=== PATIENT | female | born 1955 | race Caucasian/White ===

== ENCOUNTER 2024-02-28 15:08 | Outpatient (REF) | payer MEDICARE, SELFPAY ==
[2024-02-28 17:44] LABS: MANUAL DIFF FLAG NO
[2024-02-28 17:45] LABS: Basophils Percent Auto 0.3 % (0-2); Eosinophils Absolute Auto 0.1 X10*3/uL (0.0-0.4); Eosinophils Percent Auto 1.4 % (0-4); Hematocrit 40.3 % (37.0-47.0); Hemoglobin 13.7 g/dl (12.0-16.0); Imm Gran Abs Auto 0.03 X10*3/uL (0.00-0.03); Imm Gran Pct Auto 0.5 % (0.0-0.4); Lymphocytes Absolute Auto 1.7 X10*3/uL (1.2-4.9); Lymphocytes Percent Auto 26.5 % (20-40); Mean Corpuscular Hemoglobin 30.2 pg (27.0-33.0); Mean Corpuscular Volume 88.8 fL (80.0-98.0); Mean Platelet Volume 11.1 fL (9.4-12.3); Monocytes Absolute Auto 0.4 X10*3/uL (0.1-1.2); Monocytes Percent Auto 5.5 % (2-11); Neutrophils Absolute Auto 4.3 x10*3/uL (2.0-8.3); Neutrophils Percent Auto 65.8 % (45-73); Platelet Count 186 X10*3/uL (160-400); Red Blood Count 4.54 X10*6/uL (4.20-5.50); Red Cell Distribution Width 13.2 % (11.0-16.0); White Blood Count 6.6 X10*3/uL (4.8-10.8)
[2024-02-28 18:01] LABS: Alanine Aminotransferase 14 U/L (0-31); Albumin Level 4.4 g/dL (3.5-5.0); Alkaline Phosphatase 75 U/L (39-117); Anion Gap 16 (12-20); Aspartate Amino Transferase 17 U/L (5-31); Bilirubin Total 0.5 mg/dL (0.0-1.0); Blood Urea Nitrogen 21 mg/dL (9-16); Carbon Dioxide 28 mmol/L (22-29); Chloride 102 mmol/L (96-108); Cholesterol 196 mg/dL (<200); Estimated Glomerular Filt Rate > 60; Glucose Random 240 mg/dL (60-115); HDL Cholesterol 48 mg/dL (>40); LDL Cholesterol Calculated 125 mg/dL (<100); Sodium 141 mmol/L (135-145); Triglycerides 119 mg/dL (<150)
[2024-02-28 18:15] LABS: TSH reflex Free T4 0.36 uIU/mL (0.32-4.0)
[2024-02-28 18:31] LABS: Creatinine Urine 154.19 mg/dL; Microalbum/Creatinine Ratio Ur 134.2 ug/mg cr (<30)
== END 2024-02-28 15:09 | disposition home or self-care (01) ==
LOC: HO.CHCLDS 15:08
PROVIDERS: Visit Provider Internal Medicine
DX: E11.9 Type 2 diabetes mellitus without complications (principal); E78.00 Pure hypercholesterolemia, unspecified; I10 Essential (primary) hypertension
CPT/HCPCS: 36415; 80053; 80061; 82043; 82570; 84443; 85025

== ENCOUNTER 2024-06-02 13:18 | Outpatient (REF) | payer MEDICARE, SELFPAY ==
[2024-06-02 14:40] LABS: Alanine Aminotransferase 20 U/L (0-31); Albumin Level 4.3 g/dL (3.5-5.0); Alkaline Phosphatase 77 U/L (39-117); Anion Gap 13 (12-20); Aspartate Amino Transferase 22 U/L (5-31); Bilirubin Total 0.5 mg/dL (0.0-1.0); Blood Urea Nitrogen 22 mg/dL (9-16); Calcium 9.4 mg/dL (8.4-10.2); Carbon Dioxide 28 mmol/L (22-29); Chloride 105 mmol/L (96-108); Estimated Glomerular Filt Rate > 60; Glucose Random 197 mg/dL (60-115); Sodium 141 mmol/L (135-145); Total Protein 6.9 g/dL (6.5-8.0)
== END 2024-06-02 13:19 | disposition home or self-care (01) ==
LOC: HO.CHCLDS 13:18
PROVIDERS: Visit Provider Internal Medicine
DX: I10 Essential (primary) hypertension (principal); E78.00 Pure hypercholesterolemia, unspecified
CPT/HCPCS: 36415; 80053

== ENCOUNTER 2024-08-08 14:45 | Outpatient (REF) | payer MEDICARE, SELFPAY ==
[2024-08-08 18:10] LABS: Appearance Urine Cloudy; Color Urine Yellow; Glucose Urine UA >=1000 mg/dL (Negative); Leukocyte Esterase Urine Negative (Negative); Nitrite Urine Negative (Negative); PH 5.5 (5.0-9.0); Specific Gravity - Urine >= 1.030 (1.005-1.025); UMIC TRIGGER UACC YES; Urine Blood Negative (Negative); Urine Ketones Negative (Negative); Urine Protein 30 (1+) mg/dL (Neg-Trace)
[2024-08-08 18:13] LABS: Bacteria Urine 4+ (None Seen); Hyaline Casts Urine 0-2 /LPF (0-2); RBC Urine 0-2 /HPF (0-2); Squamous Epithelial Cell Urine >20 /HPF (0-2); UACC Culture Trigger YES
[2024-08-08 18:23] LABS: Cholesterol 234 mg/dL (<200); HDL Cholesterol 45 mg/dL (>40); LDL Cholesterol Calculated 154 mg/dL (<100); Triglycerides 178 mg/dL (<150)
--- OUTSIDE RECORDS SUMMARY | 2024-08-08 18:28 | XMS_ITS | Encounter Summary ---
Author Organization [employer] Address [address] [facility] 7 [place] [address] Care Team Providers Care Technology Administrator Name Role Phone Christina Rhodes MD Primary Care Provider [phone] Becky Acosta PharmD Unavailable Encounter Details Date Type Department Care Team (Latest Contact Info) Description 08/08/2024 Travel Social History Tobacco Use Types Packs/Day Years Used Date Smoking Tobacco: Every Day Cigarettes 1 57.2 Started: 1966 Smokeless Tobacco: Never Depression Answer Date Recorded Patient Health Questionnaire-9 Score 24 08/08/2024 Patient Health Questionnaire-9 Score 24 08/08/2024 Last PHQ-9: Questionnaire Data Not on file 0 08/08/2024 Housing Stability Answer Date Recorded What is your housing situation today? I have viktor silverio 08/08/[address] you li ve. Do you have problems with any of the following? Oven or stove not working 08/08/2024 Food Insecurity Answer Date Recorded Within the past 12 months, y ou worried that your food would run out before you got money to buy more: Sometimes True 2024 Within the past 12 months,th e food you bought just didn't last and you didn't have enough money to get more: Sometimes True 08/08/2024 Transportation Answer Date Recorded In the past 12 months, has l ack of transportation kept you from medical appts, meetings, work or from getting things needed for daily living? I am not sure 08/08/2024 Utilities Answer Date Recorded In the past 12 months, has t he electric, gas, oil or water company threatened to shut off services in your home? I am not sure 08/08/2024 Depression Answer Date Recorded Patient Health Questionnaire-2 Score 6 08/08/2024 Comments Unknown Sex and Gender Information Value Date Recorded Sex Assigned at Female 04/13/2022 10:24 AM EDT Legal Sex Female 10:24 AM EDT Gender Identity Female 04/13/2022 10:24 AM EDT Sexual Orientation Straight 04/13/2022 10 :24 AM EDT documented as of this encounter Plan of Treatment Upcoming Encounters Date Type Department Care Team (Late st Contact Info) Description 08/29/2024 3:00 PM EDT Medication Management [facility] MED & PEDS [address] [place] [address] Becky Acosta PharmD [address] [place] [address] 11/09/2024 4:00 PM EDT Office Visit [facility] MED & PEDS [address] [place] [address] Christina Rhodes MD [address] [place] [address] documented as of this encounter Visit Diagnoses Not on filedocumented in this encounter Additional Health Concerns Assessment Noted Time PHQ-9 Depression Total Score: 24 025 2:49 PM EST documented as of this encounter Care Teams Technology Administrator Relationship Specialty Start Date End Date Christina Rhodes MD [address] [place] [address] PCP - General Internal Medicine 04/10/16 Becky Acosta, PharmD [address] [place] [address] Pharmacist Internal Medicine 07/28/24 documented as of this encounter
--- OUTSIDE RECORDS SUMMARY | 2024-08-08 18:28 | XMS_ITS | Encounter Summary ---
Author Organization [employer] Address [address] [place] [address] 7 [place] [address] Care Team Providers Care Sweet Goods Machine Operator Name Role Phone Christina Rhodes MD Primary Care Provider [phone] Becky Acosta PharmD Unavailable [phone] Encounter Details Date Type Department Care Team (Latest Contact Info) Description 05/29/2024 Orders Only [facility] MED & PEDS [address] [place] [address] Christina Rhodes MD [address] [place] [address] Hypercholesterolemia (Primary Dx); Primary hypertension Social History Tobacco Use Types Packs/Day Years Used Date Smoking Tobacco: Every Day Cigarettes 1 57.2 Started: 1966 Smokeless Tobacco: Never Depression Answer Date Recorded Patient Health Questionnaire-9 Score 21 01/24/2024 Patient Health Questionnaire-9 Score 21 01/24/2024 Last PHQ-9: Questionnaire Data Not on file 0 01/24/2024 Depression Answer Date Recorded Patient Health Questionnaire-2 Score 6 01/24/2024 Comments Unknown Sex and Gender Information Value Date Recorded Sex Assigned at Female 04/13/2022 10:24 AM EDT Legal Sex Female 10:24 AM EDT Gender Identity Female 04/13/2022 10:24 AM EDT Sexual Orientation Straight 04/13/2022 10 :24 AM EDT documented as of this encounter Plan of Treatment Upcoming Encounters Date Type Department Care Team ( st Contact Info) Description 08/29/2024 3:00 PM EDT Medication Management [facility] MED & PEDS [address] [place] [address] Becky Acosta, PharmD [address] [place] [address] 11/09/2024 4:00 PM EDT Office Visit [facility] MED & PEDS [address] [place], [place] [phone] Christina Rhodes MD [address] [place], [place] [phone] documented as of this encounter Procedures Procedure Name Priority Date/Time Associated Diagnosis Comments COMPREHENSIVE METABOLIC PANEL Routine 06/02/2024 1:19 PM EST Hypercholesterolemia Primary hypertension documented in this encounter Results * (ABNORMAL) Comprehensive Metabolic Panel (06/02/2024 1:19 PM EST) Sodium 141 135 - 145 mmol/L [facility] Potassium 5.0 3.3 - 5.1 mmol/L [facility] Chloride 105 96 - 108 mmol/L [facility] Carbon Dioxide 28 22 - 29 mmol/L [facility] Anion Gap 13 12 - 20 [facility] Urea Nitrogen (BUN) 22(H) 9 - 16 mg/dL [facility] Creatinine, Serum 0.78 0.5 - 1.4 mg/dL [facility] Estimated Glomerular Filt Rate >60 [facility] Comment:Chronic Kidney Disea se: Estimated GFR < 60 mL/min/1.13u0Tkhfkt Kidney Disease: Estimated GFR < 15 mL/min/1.73m2 Glucose 197(H) 60 - 115 mg/dL [facility] Calcium 9.4 8.4 - 10.2 mg/dL [facility] Bilirubin, Total 0.5 0.0 - 1.0 mg/dL [facility] Aspartate Amino Transferase 22 5 - 31 U/L [facility] Alanine Aminotransferase 20 0 - 31 U/L [facility] Total Protein 6.9 6.5 - 8.0 g/dL [facility] Albumin Level 4.3 3.5 - 5.0 g/dL [facility] Alkaline Phosphatase 77 39 - 117 U/L [facility] Blood Venous blood specimen / Unknown 06/02/2024 1:19 PM EST 06/02/2024 2:14 PM EST Christina Rhodes MD LAB BLOOD ORDERABLES Final Result [facility] [address] [place] [address] [phone] documented in this encounter Visit Diagnoses Diagnosis Hypercholesterolemia- Primary Pure hypercholesterolemia Primary hypertension Unspecified essential hypertension documented in this encounter Additional Health Concerns Assessment Noted Time PHQ-9 Depression Total Score: 21 024 3:36 PM EDT documented as of this encounter Care Teams Sweet Goods Machine Operator Relationship Specialty Start Date End Date Christina Rhodes MD [address] [place] [address] PCP - General Internal Medicine 04/10/16 Becky Acosta PharmD [address] [place] [address] Pharmacist Internal Medicine 07/28/24 documented as of this encounter
--- OUTSIDE RECORDS SUMMARY | 2024-08-08 18:28 | XMS_ITS | Encounter Summary ---
Author Organization [employer] Address [address] [facility] 7t [place] [address] Care Team Providers Care Paper Pattern Folder Name Role Phone Christina Rhodes MD Primary Care Provider [phone] Becky Acosta PharmD Unavailable [phone] Encounter Details Date Type Department Care Team (Late st Contact Info) Description 08/08/2024 Orders Only [facility] MED & PEDS [address] [place] [address] Provider, MD [place] Social History Tobacco Use Types Packs/Day Years [...] Description 08/29/2024 3:00 PM EDT Medication Management [facility] MED & PEDS [address] [place] [address] Becky Acosta PharmD [address] [place] [address] 11/09/2024 4:00 PM EDT Office Visit [facility] MED [facility] PED[facility] [address] [place] [address] Christina Rhodes MD [address] [place] [address] documented as of this encounter Procedures Procedure Name Priority Date/Time Associated Diagnosis Comments HEMOGLOBIN A1C Routine 07/18/2024 12:09 PM EST documented in this encounter Results * Hemoglobin A1c (07/18/2024 12:09 PM EST) Blood Venous blood specimen / Unknown us Historical Provider LAB BLOOD ORDERABLES Ally l Result documented in this encounter Visit Diagnoses Not on filedocumented in this encounter Additional Health Concerns Assessment Noted Time PHQ-9 Depression Total Score: 24 025 2:49 PM EST documented as of this encounter Care Teams Paper Pattern Folder Relationship Specialty Start Date End Date Christina Rhodes MD [address] [place] [address] PCP - General Internal Medicine 04/10/16 Becky Acosta PharmD [address] [place] [address] Pharmacist Internal Medicine 07/28/24 documented as of this encounter
--- OUTSIDE RECORDS SUMMARY | 2024-08-08 18:28 | XMS_ITS | Encounter Summary ---
Author Organization [employer] Address [address] [place] [address] Care Team Providers Care Strapper Name Role Phone Christina Rhodes MD Primary Care Provider [phone] Becky Acosta PharmD Unavailable [phone] Reason for Visit * Reason Comments Med Refill Encounter Details Date Type Department Care Team (Late st Contact Info) Description 03/16/2023 Refill [facility] MED & PEDS [address] [place] [address] Christina Rhodes MD [address] [place] [address] Depressive disorder Social History Tobacco Use Types Packs/Day Years Used Date Smoking Tobacco: Never Assessed Comments Unknown Sex and Gender Information Value [...] Description 08/29/2024 3:00 PM EDT Medication Management [facility] MED & PEDS [address] [place] [address] Becky Acosta, PharmD [address] [place] [address] 11/09/2024 4:00 PM EDT Office Visit [facility] MED & PEDS [address] [place], [place] [phone] Christina Rhodes MD [address] [place] [address] documented as of this encounter Visit Diagnoses Diagnosis Depressive disorder Depressive disorder, not elsewhere classified documented in this encounter Care Teams Strapper Relationship Specialty Start Date End Date Christina Rhodes MD [address] [place] [address] PCP - General Internal Medicine 04/10/16 Becky Acosta, NikkiD [address] [place] [address] Pharmacist Internal Medicine 07/28/24 documented as of this encounter
--- OUTSIDE RECORDS SUMMARY | 2024-08-08 18:28 | XMS_ITS | Encounter Summary ---
Author Organization [employer] Address [address] [place] [address] Care Team Providers Care Ip Paralegal Name Role Phone Christina Rhodes MD Primary Care Provider [phone] Becky Acosta PharmD Unavailable [phone] Reason for Visit * Reason Comments Med Refill Encounter Details Date Type Department Care Team ([facility] Contact Info) Description 01/04/2023 Refill [facility] MED & PEDS [address] [place] [address] Christina Rhodes MD [address] [place] [address] Social History Tobacco Use Types Packs/Day Years [...] Encounters Date Type Department Care Team (Late Contact Info) Description 08/29/2024 3:00 PM EDT Medication Management [facility] MED & PEDS [address] [place], [place] [phone] Becky Acosta, PharmD [address] [place] [address] 11/09/2024 4:00 PM EDT Office Visit [facility] MED & PEDS [address] [place], [place] [phone] Christina Rhodes MD [address] [place] [address] documented as of this encounter Visit Diagnoses Not on filedocumented in this encounter Care Teams Ip Paralegal Relationship Specialty Start Date End Date Christina Rhodes MD [address] [place] [address] PCP - General Internal Medicine 04/10/16 Becky Acosta PharmD [address] [place] [address] Pharmacist Internal Medicine 07/28/24 documented as of this encounter
--- OUTSIDE RECORDS SUMMARY | 2024-08-08 18:28 | XMS_ITS | Encounter Summary ---
Author Organization [employer] Address [address] [place] [address] Care Team Providers Care Outside Medical Sales Representative Name Role Phone Christina Rhodes MD Primary Care Provider [phone] Becky Acosta PharmD Unavailable [phone] Reason for Visit * Reason Comments Med Refill Encounter Details Date Type Department Care Team ([facility] Contact Info) Description 02/11/2023 Refill [facility] MED & PEDS [address] [place] [address] Christina Rhodes MD [address] [place] [address] Diabetes mellitus without complication ([facility]) Social History Tobacco Use Types Packs/Day Years [...] Description 08/29/2024 3:00 PM EDT Medication Management [facility] CH[facility] MED & PEDS [address] [place], [place] [phone] Becky Acosta, PharmD [address] [place] [address] 11/09/2024 4:00 PM EDT Office Visit [facility] CHC MED & PEDS [address] [place], [place] [phone] Christina Rhodes MD [address] [place] [address] documented as of this encounter Visit Diagnoses Diagnosis Diabetes mellitus without complication ([facility]) Type II or unspecified type diabetes mellitus without mention of complication, not stated as uncontrolled documented in this encounter Care Teams Outside Medical Sales Representative Relationship Specialty Start Date End Date Christina Rhodes MD [address] [place] [address] PCP - General Internal Medicine 04/10/16 Becky Acosta PharmD [address] [place] [address] Pharmacist Internal Medicine 07/28/24 documented as of this encounter
--- OUTSIDE RECORDS SUMMARY | 2024-08-08 18:28 | XMS_ITS | Encounter Summary ---
Author Organization [employer] Address [address] [place] [address] Care Team Providers Care Service Center Manager Name Role Phone Christina Rhodes MD Primary Care Provider Becky Acosta PharmD Unavailable [phone] Reason for Visit * Reason Comments Med Refill Encounter Details Date Type Department Care Team ([facility] st Contact Info) Description 09/23/2023 Refill [facility] MED & PEDS [address] [place] [address] Christina Rhodes MD [address] [place] [address] Essential (primary) hypertension Social History Tobacco Use Types Packs/Day [...] Description 08/29/2024 3:00 PM EDT Medication Management [facility] CH[facility] MED & PEDS [address] [place], [place] [phone] Becky Acosta, PharmD [address] [place] [address] 11/09/2024 4:00 PM EDT Office Visit [facility] CHC MED & PEDS [address] [place] [address] Christina Rhodes MD [address] [place] [address] documented as of this encounter Visit Diagnoses Diagnosis Essential (primary) hypertension Unspecified essential hypertension documented in this encounter Care Teams Service Center Manager Relationship Specialty Start Date End Date Christina Rhodes MD [address] [place] [address] PCP - General Internal Medicine 04/10/16 Becky Acosta PharmD [address] [place] [address] Pharmacist Internal Medicine 07/28/24 documented as of this encounter
--- OUTSIDE RECORDS SUMMARY | 2024-08-08 18:28 | XMS_ITS | Encounter Summary ---
Author Organization [employer] Address [address] [place] [address] Care Team Providers Care Meat Apprentice Name Role Phone Christina Rhodes MD Primary Care Provider [phone] Becky Acosta PharmD Unavailable [phone] Reason for Visit * Reason Onset Date Comments chart prep 08/04/2024 Encounter Details Date Type Department Care Team ([facility] Contact Info) Description 08/04/2024 Telephone [facility] MED & PEDS [address] [place], [place] [phone] Christina Rhodes MD [address] [place] [address] chart prep Social History Tobacco Use Types Packs/Day Years [...] AM EDT documented as of this encounter Miscellaneous Notes * Telephone Encounter - [place] - 08/04/2024 3:51 PM EST Chart Prep Labs: done Images: done Vaccines due: yes Referrals: complete Screenings: colonoscopy [facility] Overdue care gaps: A1C, Glucose, Sbirt, SDOH, PHQ-9 documented in this encounter Plan of Treatment Upcoming Encounters Date Type Department Care Team (Late st Contact Info) Description 08/29/2024 3:00 PM EDT Medication Management [facility] MED & PEDS [address] [place] [address] Becky Acosta PharmD [address] [place] [address] 11/09/2024 4:00 PM EDT Office Visit [facility] MED & PEDS [address] [place] [address] Christina Rhodes MD [address] [place] [address] documented as of this encounter Visit Diagnoses Not on filedocumented in this encounter Additional Health Concerns Assessment Noted Time PHQ-9 Depression Total Score: 21 01/23/ 024 3:36 PM EDT documented as of this encounter Care Teams Meat Apprentice Relationship Specialty Start Date End Date Christina Rhodes MD [address] [place] [address] PCP - General Internal Medicine 04/10/16 Becky Acosta PharmD [address] [place] [address] Pharmacist Internal Medicine 07/28/24 documented as of this encounter
--- OUTSIDE RECORDS SUMMARY | 2024-08-08 18:28 | XMS_ITS | Encounter Summary ---
Author Organization [employer] Address [address] [place] [address] Care Team Providers Care Explosion Welder Name Role Phone Christina Rhodes MD Primary Care Provider [phone] Becky Acosta PharmD Unavailable [phone] Reason for Referral * Consultation (Routine) - Authorized Specialty Diagnoses / Procedures Referred By Contac t Referred To Contact Optometry Diagnoses Diabetes mellitus without complication (CMS/HCC) Christina Rhodes MD [address] [place] [address] Phone: tel: fax: [facility] OPTOMETRY [address] [place] [address] Phone: tel: fax: Referral ID Status Reason Start Date Expiration Date Visits Requested Visits Authorized [id number] Authorized Consult and Treat 08/08/2024 08/08/2025 1 1 Reason for Visit * Reason Comments Hypertension Diabetes Hyperlipidemia Encounter Details Date Type Department Care Team (Late st Contact Info) Description 08/08/2024 2:00 PM EST Office Visit [facility] CHC MED & PEDS [address], [place] [phone] Christina Rhodes MD [address] [place], [place] [phone] Diabetes mellitus without complication (CMS/HCC) (Primary Dx); Primary hypertension; Hypercholesterolemia; Smoking; Mixed stress and urge urinary incontinence; Dietary counseling; Exercise counseling; Class 2 severe obesity due to excess calories with serious comorbidity and body mass index (BMI) of 36.0 to 36.9 in adult ([facility]) Social History Tobacco Use Types Packs/Day Years [...] AM EDT documented as of this encounter Last Filed Vital Signs Vital Sign Reading Time Taken Comments Blood Pressure 135/70 08/08/2024 2:12 PM EST Pulse 84 08/08/2024 2:12 PM EST Temperature 36.5 ??C (97.7 ??F) 08/08/2024 2:12 PM ES T Respiratory Rate 19 08/08/2024 2:12 PM EST Oxygen Saturation 97% 08/08/2024 2:12 PM EST Inhaled Oxygen Concentration - - Weight 98.9 kg (218 lb) 08/08/2024 2:12 PM EST Height 165.1 cm (5' 5 ) 08/08/2024 2:12 PM EST Body Mass Index 36.28 08/08/2024 2:12 PM EST documented in this encounter Progress Notes * Christina Rhodes MD - 08/08/2024 2:00 PM EST Subjective Patient ID: Criselda Beltran is a 69 y.o. female who presents for Hypertension, Diabetes, and Hyperlipidemia. Hypertension This is a chronic problem. The current episode started more than 1 year ago. The problem is unchanged. The problem is controlled. Associated symptoms include anxiety. Pertinent negatives include no blurred vision, chest pain, headaches, malaise/fatigue, neck pain, orthopnea, palpitations, peripheral edema, PND, shortness of breath or sweats. There are no associated agents to hypertension. Diabetes Pertinent negatives for hypoglycemia include no headaches or sweats. Pertinent negatives for diabetes include no blurred vision and no chest pain. Hyperlipidemia Pertinent negatives include no chest pain or shortness of breath. Pt has not been checking her FS since her last visit Was evaluated by our clinical pharmacist. Prescribed a CGM which was not picked up yet Pt denies any symptoms of hypoglycemia. She feels overwhelmed w/ the care of her boyfriend she is living with. She states she is on a list to get her own apartment in 6 months to a year and then she will address other issues. Patient is requesting to get incontinent pads prescribed to her today. Reports history of leakage of urine exacerbated by coughing associated also with urgency for over 10 years. No reported fever orburning sensation with micturition. Patient Active Problem List Diagnosis Anxiety Depressive disorder Diabetes mellitus without complication ([facility]) Hypercholesterolemia Hypertensive disorder Vulvovaginitis No Known Allergies Current Outpatient Medications on File Prior to Visit Medication Sig Dispense Refill acetaminophen (Tylenol 8 Hour) 650 MG ER tablet Take 1 tablet by mouth in the morning and 1 tablet at noon and 1 tablet in the evening. Alcohol Swabs 70 % pads Use to test blood sugar 2 times daily 100 each 11 amLODIPine (Norvasc) 10 MG tablet Take 1 tablet (10 mg) by mouth Once per day. 30 tablet 11 atorvastatin (Lipitor) 40 MG tablet Take 1 tablet (40 mg) by mouth Once per day. TAKE ONE TABLET every night at bedtime 90 tablet 3 Blood Pressure kit Use daily busPIRone (Buspar) 5 MG tablet Take 1 tablet (5 mg) by mouth 2 times daily. 180 tablet 3 [] Continuous Glucose Division Sergeant (FreeStyle Virgie 3 [place]) device 1 each 1 (one) time for 1 dose. 1 each 0 Continuous Glucose Sensor (FreeStyle Virgie 3 Plus Sensor) misc 1 each every 15 days. 2 each 11 enalapril (Vasotec) 20 MG tablet Take 1 tablet (20 mg) by mouth 2 times daily. TAKE ONE TABLET BY MOUTH IN THE MORNING AND EVENING 180 tablet 3 FREESTYLE LITE test strip Use to test blood sugar 2 times daily 100 each 12 insulin glargine (Lantus SoloStar) 100 UNIT/ML pen Inject 50 Units under the skin at bedtime. 45 mL3 Lancets (GuestDrivenTouch Delica Plus [id number]) [facility] TEST BLOOD SUGAR TWICE DAILY 100 each 11 nicotine (Nicoderm CQ) 21 MG/24HR patch Place 1 patch on the skin 1 (one) time each day at the sametime. 30 patch 0 nicotine polacrilex (Commit) 4 MG lozenge Dissolve 1 lozenge (4 mg) in the mouth every 2 (two) hours if needed for smoking cessation. 72 lozenge 11 repaglinide (Prandin) 0.5 MG tablet Take 1 tablet (0.5 mg) by mouth before breakfast, before lunch,and before evening meal. 90 tablet 11 sertraline (Zoloft) 100 MG tablet TAKE TWO TABLETS EVERY MORNING 60 tablet 5 Tirzepatide (Mounjaro) 2.5 MG/0.5ML solution auto-injector Inject 2.5 mg under the skin 1 (one) time per week. Increase to 5mg after 4 weeks if tolerated 2 mL 0 UltiCare Short Pen Dante 31G X 8 MM mis USE ONE DAILY WITH TRESIBA 100 each 11 No current facility-administered medications on file prior to visit. Review of Systems Constitutional: Negative for appetite change, diaphoresis and malaise/fatigue. HENT: Negative for dental problem and drooling. Eyes: Negative for blurred vision, photophobia, pain and redness. Respiratory: Negative for cough, choking, chest tightness and shortness of breath. Cardiovascular: Negative for chest pain, palpitations, orthopnea and PND. Gastrointestinal: Negative for abdominal pain, anal bleeding and blood in stool. Musculoskeletal: Negative for neck pain. Neurological: Negative for headaches. Objective BP 135/70 (BP Location: Left arm, Patient Position: Sitting, BP Cuff Size: Adult long) Pulse 84 Temp 97.7 ??F (36.5 ??C) (Oral) Resp 19 Ht 5' 5 (1.651 m) Wt 218 lb (98.9 kg) SpO2 97% BMI 36.28 kg/m?? Physical Exam Constitutional: General: She is not in acute distress. Appearance: Normal appearance. She is obese. She is not ill-appearing, toxic- appearing or diaphoretic. Musculoskeletal: General: Normal range of motion. Neurological: Mental Status: She is alert. Assessment/Plan Diagnoses and all orders for this visit: Diabetes mellitus without complication ([facility]) Comments: Lantus 50 units at bedtime Advised to pickle solution maker the CGM prescribed and to get in touch w/ Becky to get educated on it's use. Orders: - POCT Glucose - Referral to [facility] Eye Care; Future Primary hypertension Comments: BP is at goal No change in management. Hypercholesterolemia Comments: Had Elevated LDL in Sept Pt needs a repeat Lipid panel to assess improvement. Orders: - POCT Glucose - Lipid Panel, Standard; Future Smoking Comments: Has not start using the nicotine patches yet Smoking cessation recommended. Mixed stress and urge urinary incontinence - Urinalysis, Complete, with Reflex to Culture; Future Dietary counseling Exercise counseling Dietary Recommendations: Fruits, vegetables, whole grains, protein foods, and fat-free or low-fat dairy products are healthychoices. Eat different types of protein foods in your diet. This can include seafood, lean meats, poultry, beans, peas, lentils, nuts, seeds, soy products, and eggs. Limit foods and beverages higher in added sugars, saturated fat, and sodium. Exercise Recommendations: At least 150 minutes of moderate-intensity physical activity per week, or an equivalent combinationof moderate- and vigorous-intensity activity Class 2 severe obesity due to excess calories with serious comorbidity and body mass index (BMI) of36.0 to 36.9 in adult ([facility]) Discussed calorie deficit, recommended reduction of 20-30% of maintenance calories; airport skilled maintenance supervisor referral offered. Recommended to decrease soda and sugary beverage consumption. Recommended at least 20 g per meal of protein to assist with satiety. Recommended at least 150 min/week of moderate intensity exercise. documented in this encounter Plan of Treatment Upcoming Encounters Date Type Department Care Team (Late st Contact Info) Description 08/29/2024 3:00 PM EDT Medication Management [facility] MED & PEDS [address], [place] [phone] Becky Acosta, PharmD [address] [place], [place] [phone] 11/09/2024 4:00 PM EDT Office Visit [facility] MED [facility] PED[facility] [address], [place] [phone] Christina Rhodes MD [address] [place] [address] Scheduled Orders Name Type Priority Associated Diagnoses Orde r Schedule Lipid Panel, Standard Lab Routine Hypercholesterolemia Expected: 08/08/2024 (Approximate), Expires: 08/08/2025 Scheduled Referrals Name Type Priority Associated Diagnoses Orde r Schedule Referral to [facility] Eye Care Outpatient Referral Routine Diabetes mellitus without complication ([facility]/H[facility]) Expected: 08/08/2024 (Approximate), Expires: 08/08/2025 documented as of this encounter Procedures Procedure Name Priority Date/Time Associated Diagnosis Comments URINALYSIS, COMPLETE, WITH REFLEX TO CULTURE Routine 08/08/2024 2:50 PM EST Mixed stress and urge urinary incontinence LIPID PANEL, STANDARD Routine 08/08/2024 2:46 PM EST Hypercholesterolemia POCT GLUCOSE Routine 08/08/2024 2:42 PM EST Diabetes mellitus without complication ([facility]/H[facility]) Hypercholesterolemia documented in this encounter Results * (ABNORMAL) Urinalysis, Complete, with Reflex to Culture (08/08/2024 2:50 PM EST) Color Urine Yellow [facility] Appearance Urine Cloudy [facility] PH 5.5 5.0 - 9.0 [facility] Glucose Urine UA >=1000(A) Negative mg/dL [facility] Urine Blood Negative Negative [facility] Specific [place] - Urine >=1.030(H) 1.005 - 1.025 [facility] Urine Protein 30 (1+)(A) Neg-Trace mg/dL [facility] Urine Ketones Negative Negative mg/dL [facility] Nitrite Urine Negative Negative [facility] Leukocyte Esterase Urine Negative Negative [facility] RBC Urine 0-2 0 - 2 /HPF [facility] Urine WBC 6-10(A) 0 - 5 /HPF [facility] Urine Squamous Epithelial Cell >20 0 - 2 /HPF [facility] Urine Bacteria 4+ None Seen [facility] Hyaline Casts, Urine 0-2 0 - 2 /LPF [facility] Urine 08/08/2024 2:50 PM EST 08/08/2024 6:03 PM EST Narrative [facility] - 08/08/2024 6:16 PM EST [id number], Clean Catch us Christina Rhodes MD LAB URINE ORDERABLES Final Result [facility] [address] [place] [phone] * (ABNORMAL) Lipid Panel, Standard (08/08/2024 2:46 PM EST) Triglycerides 178(H) <150 mg/dL [facility] Comment:Desirable Triglyceri de: less than 150 mg/dLBorderline High Triglyceride 150-199 mg/dLHigh Triglyceride: 200-499 mg/dLVery High Triglyceride: greater than or equal to 5OO mg/dL Cholesterol 234(H) <200 mg/dL [facility] Comment:Desirable Cholestero l: less than 200 mg/dLBorderline High Cholesterol: 200-239 mg/dLHigh Cholesterol: greater than 239 mg/dL LDL Cholesterol Calculated 154(H) <100 mg/dL [facility] Comment:Desirable LDL: less than 100 mg/dLNear Optimal/Above Optimal LDL: 110- 129 mg/dLBorderline High LDL: 130-159 mg/dLHigh LDL: 160-189 mg/dLVery High LDL: greater than or equal to 190 mg/dL HDL Cholesterol 45 >40 mg/dL [facility] Comment:Desirable HDL: great er than 40 mg/dL Note: This HDL assay may give artificially low results in patients with liver disease. Blood Venous blood specimen / Unknown 08/08/2024 2:46 PM EST 08/08/2024 6:02 PM EST us Christina Rhodes MD LAB BLOOD ORDERABLES Final Result [facility] [address] [place] [phone] * (ABNORMAL) POCT Glucose (08/08/2024 2:42 PM EST) Glucose Blood, POC 356(A) 60 - 200 mg/dL QC Media Lot # [id number] Lot# Expiration Date [id number] Comment:random Blood Capillary blood specimen / Unknown 08/08/2024 2:42 PM EST Christina Rhodes MD POINT OF CARE TEST ENTER/ED IT ORDERABLES Final Result documented in this encounter Visit Diagnoses Diagnosis Diabetes mellitus without complication (CMS/HCC)- Primary Type II or unspecified type diabetes mellitus without mention of complication, not stated as uncontrolled Primary hypertension Unspecified essential hypertension Hypercholesterolemia Pure hypercholesterolemia Smoking Tobacco use disorder Mixed stress and urge urinary incontinence Mixed incontinence urge and stress (male)(female) Dietary counseling Dietary surveillance and counseling Exercise counseling Class 2 severe obesity due to excess calories with serious comorbidity and body mass index (BMI) of 36.0 to 36.9 in adult (CMS/HCC) documented in this encounter Additional Health Concerns Assessment Noted Time PHQ-9 Depression Total Score: 24 025 2:49 PM EST documented as of this encounter Care Teams Explosion Welder Relationship Specialty Start Date End Date Christina Rhodes MD [address] [place] [address] PCP - General Internal Medicine 04/10/16 Becky Acosta PharmD [address] [place] [phone] Pharmacist Internal Medicine 07/28/24 documented as of this encounter
--- OUTSIDE RECORDS SUMMARY | 2024-08-08 18:28 | XMS_ITS | Encounter Summary ---
Author Organization [employer] Address [address] [place] [address] Care Team Providers Care Quality Assurance Auditor Name Role Phone Christina Rhodes MD Primary Care Provider [phone] Becky Acosta PharmD Unavailable [phone] Reason for Visit * Reason Comments Med Refill Encounter Details Date Type Department Care Team ([facility] Contact Info) Description 07/28/2022 Refill [facility] MED & PEDS [address] [place] [address] Christina Rhodes MD [address] [place] [address] Depressive disorder (Primary Dx) Social History Tobacco Use Types Packs/Day Years [...] Upcoming Encounters Date Type Department Care Team ([facility] Contact Info) Description 08/29/2024 3:00 PM EDT Medication Management [facility] CHC MED & PEDS [address] [place] [address] Becky Acosta, PharmD [address] [place] [address] 11/09/2024 4:00 PM EDT Office Visit [facility] CHC MED & PEDS [address] [place] [address] Christina Rhodes MD [address] [place] [address] documented as of this encounter Visit Diagnoses Diagnosis Depressive disorder- Primary Depressive disorder, not elsewhere classified documented in this encounter Care Teams Quality Assurance Auditor Relationship Specialty Start Date End Date Christina Rhodes MD [address] [place] [address] PCP - General Internal Medicine 04/10/16 Becky Acosta PharmD [address] [place], [place] [phone] Pharmacist Internal Medicine 07/28/24 documented as of this encounter
--- OUTSIDE RECORDS SUMMARY | 2024-08-08 18:28 | XMS_ITS | Encounter Summary ---
Author Organization [employer] Address [address] [place] [address] Care Team Providers Care Glass Cutting Machine Feeder Name Role Phone Christina Rhodes MD Primary Care Provider [phone] Becky Aocsta PharmD Unavailable [phone] Reason for Visit * Reason Onset Date Comments Med Refill 05/29/2024 Encounter Details Date Type Department Care Team (Late st Contact Info) Description 05/29/2024 Refill [facility] MEDICINE [address] [place] [address] Christina Rhodes MD [address] [place] [address] Pure hypercholesterolemia, unspecified; Diabetes mellitus without complication (CMS/HCC) Social History Tobacco Use Types Packs/Day Years [...] encounter Miscellaneous Notes * Telephone Encounter - Tianna Colon - 05/29/2024 2:14 PM EST TC from pt requesting medication refill. Medications needing refill : atorvastatin (Lipitor) 40 MG tablet repaglinide (Prandin) 0.5 MG tablet To be sent to: [facility] documented in this encounter Plan of Treatment Upcoming Encounters Date Type Department Care Team (Late st Contact Info) Description 08/29/2024 3:00 PM EDT Medication Management [facility] MED & PEDS [address] [place] [address] Becky Acosta PharmD [address] [place] [address] 11/09/2024 4:00 PM EDT Office Visit [facility] MED & PEDS [address] [place] [address] Christina Rhodes MD [address] [place] [address] documented as of this encounter Visit Diagnoses Diagnosis Pure hypercholesterolemia, unspecified Diabetes mellitus without complication (CMS/HCC) Type II or unspecified type diabetes mellitus without mention of complication, not stated as uncontrolled documented in this encounter Additional Health Concerns Assessment Noted Time PHQ-9 Depression Total Score: 21 024 3:36 PM EDT documented as of this encounter Care Teams Glass Cutting Machine Feeder Relationship Specialty Start Date End Date Christina Rhodes MD [address] [place] [address] PCP - General Internal Medicine 04/10/16 Becky Acosta, PharmD [address] [place], [place] [phone] Pharmacist Internal Medicine 07/28/24 documented as of this encounter
--- OUTSIDE RECORDS SUMMARY | 2024-08-08 18:28 | XMS_ITS | Clinical Summary ---
Author Organization [address] [facility] Address [address] [place] [address] Phone Care Team Providers Care Pbx Technician Name Role Phone Christina Rhodes MD Primary Care Provider [phone] Social History Tobacco Use Types Packs/Day Years Used Date Smoking Tobacco: Never Assessed Comments Unknown Sex and Gender Information Value Date Recorded Sex Assigned at Not on file Legal Sex Female 9:52 AM EST Gender Identity Not on file Sexual Orientation Not on file Plan of Treatment Upcoming Encounters Date Type Department Care Team ([facility] Contact Info) Description 09/20/2024 3:00 PM EDT Consult Orthopedic Surgery - [place] [address] [phone] Sean Boone, DPM [address] [address] Health Maintenance Due Date Last Done Comments Breast Cancer Screening 1955 DTaP,Tdap,and Td Vaccines (1 - Tdap) 1975 Pneumococcal Vaccine: 50+ Ye ars (1 of 1 - PCV) 2006 Zoster Vaccines (1 of 2) 2006 COVID-19 Vaccine ( - 2023-2 5 season) 2024 Influenza Vaccine (#1) 2024 Colorectal Cancer Screening: Colonoscopy 07/20/2024 Depression Screening 07/20/2024 Falls Risk Assessment 07/20/2024 Hepatitis C Screening 07/20/2024 Medicare Annual Wellness Visit 07/20/2024 Osteoporosis Screening (Bone Density Screening) 07/20/2024 Social Influencers of Health Screening 07/20/2024 RSV Immunization Patients 60 + Years Old (1 - 1-dose 75+ series) 2031 HIB Vaccines Aged Out No longer eligi ble based on patient's age to complete this topic HPV Vaccines Aged Out No longer eligi ble based on patient's age to complete this topic Hepatitis A Vaccines Aged Out No long er eligible based on patient's age to complete this topic Hepatitis B Vaccines Aged Out No long er eligible based on patient's age to complete this topic IPV Vaccines Aged Out No longer eligi ble based on patient's age to complete this topic MMR Vaccines Aged Out No longer eligi ble based on patient's age to complete this topic Meningococcal ACWY Vaccine Aged Out N o longer eligible based on patient's age to complete this topic Meningococcal B Vacine Aged Out No lo nger eligible based on patient's age to complete this topic RSV Immunization Patients Un sonia 20 months Aged Out No longer eligible b ased on patient's age to complete this topic Varicella Vaccines Aged Out No longer eligible based on patient's age to complete this topic Insurance [employer] MEDICARE ADVANTAGE Care Teams Pbx Technician Relationship Specialty Start Date End Date Christina Rhodes MD [address] [place] [address] PCP - General Internal Medicine 07/20/24
--- OUTSIDE RECORDS SUMMARY | 2024-08-08 18:28 | XMS_ITS | Encounter Summary ---
Author Organization [employer] Address [address] [place] [address] Care Team Providers Care Automobile Body Repairer Name Role Phone Christina Rhodes MD Primary Care Provider [phone] Becky Acosta PharmD Unavailable [phone] Reason for Visit * Reason Comments Med Refill Encounter Details Date Type Department Care Team (Late st Contact Info) Description 01/10/2024 Refill [facility] MED & PEDS [address] [place] [address] Christina Rhodes MD [address] [place] [address] Essential (primary) hypertension; Anxiety disorder, unspecified Social History Tobacco Use Types Packs/Day Years [...] Description 08/29/2024 3:00 PM EDT Medication Management [facility] MED & PEDS [address] [place], [place] [phone] Becky Acosta, PharmD [address] [place] [address] 11/09/2024 4:00 PM EDT Office Visit [facility] CH[facility] MED & PEDS [address] [place], [place] [phone] Christina Rhodes MD [address] [place] [address] documented as of this encounter Visit Diagnoses Diagnosis Essential (primary) hypertension Unspecified essential hypertension Anxiety disorder, unspecified documented in this encounter Care Teams Automobile Body Repairer Relationship Specialty Start Date End Date Christina Rhodes MD [address] [place] [address] PCP - General Internal Medicine 04/10/16 Becky Acosta PharmD [address] [place] [address] Pharmacist Internal Medicine 07/28/24 documented as of this encounter
--- OUTSIDE RECORDS SUMMARY | 2024-08-08 18:28 | XMS_ITS | Encounter Summary ---
Author Organization [email or web address] Address [address] [place] [address] Care Team Providers Care Engineering Consultant Name Role Phone Christina Rhodes MD Primary Care Provider [phone] Becky Acosta PharmD Unavailable [phone] Encounter Details Date Type Department Care Team (Late Contact Info) Description 05/08/2024 Orders Only [facility] MED & PEDS [address] [place] [address] Christina Rhodes MD [address] [place] [address] Social History Tobacco Use Types Packs/Day Years [...] 08/29/2024 3:00 PM EDT Medication Management [facility] MED & PEDS [address] [place] [address] Becky Acotsa, PharmD [address] [place] [address] 11/09/2024 4:00 PM EDT Office Visit [facility] CHC MED & PEDS [address] [place] [address] Christina Rhodes MD [address] [place] [address] documented as of this encounter Visit Diagnoses Not on filedocumented in this encounter Additional Health Concerns Assessment Noted Time PHQ-9 Depression Total Score: 21 024 3:36 PM EDT documented as of this encounter Care Teams Engineering Consultant Relationship Specialty Start Date End Date Christina Rhodes MD [address] [place] [address] PCP - General Internal Medicine 04/10/16 Becky Acosta PharmD [address] [place] [address] Pharmacist Internal Medicine 07/28/24 documented as of this encounter
--- OUTSIDE RECORDS SUMMARY | 2024-08-08 18:28 | XMS_ITS | Encounter Summary ---
Author Organization [employer] Address [address] [place] [address] Care Team Providers Care Paper Sorter Name Role Phone Christina Rhodes MD Primary Care Provider Becky Acosta PharmD Unavailable [phone] Encounter Details Date Type Department Care Team (Late st Contact Info) Description 09/06/2023 Orders Only [facility] CH[facility] MED & PEDS [address] [place] [address] Christina Rhodes MD [address] [place] [address] Diabetes mellitus without complication (CMS/HCC) (Primary Dx) Social History Tobacco Use Types [...] Description 08/29/2024 3:00 PM EDT Medication Management [facility] MED & PEDS [address] [place] [address] Becky Acosta, PharmD [address] [place] [address] 11/09/2024 4:00 PM EDT Office Visit [facility] MED & PEDS [address] [place] [address] Chritsina Rhodes MD [address] [place] [address] documented as of this encounter Visit Diagnoses Diagnosis Diabetes mellitus without complication (CMS/HCC)- Primary Type II or unspecified type diabetes mellitus without mention of complication, not stated as uncontrolled documented in this encounter Care Teams Paper Sorter Relationship Specialty Start Date End Date Christina Rhodes MD [address] [place] [address] PCP - General Internal Medicine 04/10/16 Becky Acosta PharmD [address] [place] [address] Pharmacist Internal Medicine 07/28/24 documented as of this encounter
--- OUTSIDE RECORDS SUMMARY | 2024-08-08 18:28 | XMS_ITS | Clinical Summary ---
Author Organization [employer] Address [address] [place] [address] 7 [place] [address] Care Team Providers Care Department Chair Name Role Phone Christina Rhodes MD Primary Care Provider [phone] Becky Acosta PharmD Unavailable [phone] Allergies No known active allergies Medications acetaminophen (Tylenol 8 Hour) 650 MG ER tablet Take 1 tablet by mouth in the morning and 1 tablet at noon and 1 tablet in the evening. 021 Active Blood Pressure kit Use daily Active enalapril (Vasotec) 20 MG tabletIndicatio ns:Essential (primary) hypertension Take 1 tablet (20 mg) by mouth 2 times daily. TAKE ONE TABLET BY MOUTH IN THE MORNING AND EVENING 180 tablet 3 Active FREESTYLE LITE test stripIndication s:Diabetes mellitus without complication (CMS/HCC) Use to test blood sugar 2 times daily 100 each 12 024 2024 Active Alcohol Swabs 70 % padsIndications :Diabetes mellitus without complication (CMS/HCC) Use to test blood sugar 2 times daily 100 each Active busPIRone (Buspar) 5 MG tabletIndicatio ns:Anxiety disorder, unspecified Take 1 tablet (5 mg) by mouth 2 times daily. 180 tablet 3 024 2024 Active UltiCare Short Pen [place] 31G X 8 MM miscIndications :Diabetes mellitus without complication (CMS/HCC) USE ONE DAILY WITH TRESIBA 100 each 11 Active Lancets (OneTouch Delica Plus [id number]) miscIndications :Diabetes mellitus without complication (CMS/HCC) TEST BLOOD SUGAR TWICE DAILY 100 each 11 Active atorvastatin (Lipitor) 40 MG tabletIndicatio ns:Pure hypercholestero lemia, unspecified Take 1 tablet (40 mg) by mouth Once per day. TAKE ONE TABLET every night at bedtime 90 tablet 3 Active repaglinide (Prandin) 0.5 MG tabletIndicatio ns:Diabetes mellitus without complication (CMS/HCC) Take 1 tablet (0.5 mg) by mouth before breakfast, before lunch, and before evening meal. 90 tablet 11 024 2024 Active sertraline (Zoloft) 100 MG tabletIndicatio ns:Depressive disorder TAKE TWO TABLETS EVERY MORNING 60 tablet 5 Active amLODIPine (Norvasc) 10 MG tabletIndicatio ns:Primary hypertension Take 1 tablet (10 mg) by mouth Once per day. 30 tablet 025 2025 Active insulin glargine (Lantus SoloStar) 100 UNIT/ML penIndications: Diabetes mellitus without complication (CMS/HCC) Inject 50 Units under the skin at bedtime. 45 mL 3 025 2025 Active nicotine (Nicoderm CQ) 21 MG/24HR patchIndication s:Smoking Place 1 patch on the skin 1 (one) time each day at the same time. 30 patch Active nicotine polacrilex (Commit) 4 MG lozengeIndicati ons:Smoking Dissolve 1 lozenge (4 mg) in the mouth every 2 (two) hours if needed for smoking cessation. 72 lozenge Active Continuous Glucose Sensor (FreeStyle Virgie 3 Plus Sensor) miscIndications :Diabetes mellitus without complication (CMS/HCC) 1 each every 15 days. 2 each Active Tirzepatide (Mounjaro) 2.5 MG/0.5ML solution auto-injectorIn dications:Diabe kristan mellitus without complication (CMS/HCC) Inject 2.5 mg under the skin 1 (one) time per week. Increase to 5mg after 4 weeks if tolerated 2 mL Active aspirin 81 MG EC tablet Take 1 tablet by mouth. 2024 Discontinued(M ed list cleanup (will not trigger notification to Pharmacy)) ibuprofen 600 MG tablet Take 1 tablet by mouth every 8 (eight) hours. 021 2024 Discontinued(M ed list cleanup (will not trigger notification to Pharmacy)) Insulin Aspart (NovoLOG) 100 UNIT/ML solution inject 20 units by subcutaneous route before meals 022 2024 Discontinued(M ed list cleanup (will not trigger notification to Pharmacy)) Blood Glucose Monitoring Suppl (FreeStyle Lite) device Inject under the skin if needed. Test 3 times every day 2024 Discontinued(M ed list cleanup (will not trigger notification to Pharmacy)) TRUEplus Lancets 33G misc TEST BLOOD SUGAR THREE TIMES DAILY 100 each 5 023 2024 Discontinued(D uplicate order (will not trigger notification to Pharmacy)) Tresiba FlexTouch 100 UNIT/ML injectionIndica tions:Type 2 diabetes mellitus with hyperglycemia, with long-term current use of insulin ([facility]) INJECT 40 UNITS SUBCUTANEOUSLY DAILY, rotate injection site 15 mL 5 023 2024 Discontinued(A lternate therapy) FREESTYLE LITE test stripIndication s:Diabetes mellitus without complication ([facility]) TEST BLOOD SUGAR THREE TIMES DAILY 100 strip 5 023 2024 Discontinued(D uplicate order (will not trigger notification to Pharmacy)) Blood Glucose Monitoring Suppl (FreeStyle Keystone Lite) w/Device kitIndications: Diabetes mellitus without complication ([facility]) Use to test blood sugar 2 times daily 1 kit 024 2024 Discontinued(M ed list cleanup (will not trigger notification to Pharmacy)) enalapril (Vasotec) 20 MG tabletIndicatio ns:Essential (primary) hypertension Take 1 tablet (20 mg) by mouth 2 times daily. 180 tablet 3 024 2024 Discontinued(D uplicate order (will not trigger notification to Pharmacy)) Continuous Glucose Product Development Technician (FreeStyle Virgie 3 [place]) deviceIndicatio ns:Diabetes mellitus without complication ([facility]) 1 each 1 (one) time for 1 dose. 1 each 025 2024 Active Problems Problem Noted Date Diagnosed Date Vulvovaginitis 04/22/2018 Anxiety 04/10/2016 Depressive disorder 04/10/2016 Diabetes mellitus without complication 6 Hypercholesterolemia 04/10/2016 Hypertensive disorder 04/10/2016 Encounters Date Type Department Care Team Description 08/08/2024 2:00 PM EST Office Visit [facility] MED & PEDS [address] [place] [address] Christina Rhodes MD Diabetes mellitus without complication ([facility]) (Primary Dx); Primary hypertension; Hypercholesterolemia; Smoking; Mixed stress and urge urinary incontinence; Dietary counseling; Exercise counseling; Class 2 severe obesity due to excess calories with serious comorbidity and body mass index (BMI) of 36.0 to 36.9 in adult ([facility]) 08/08/2024 Travel 08/08/2024 Orders Only [facility] MED & PEDS [address] [place] [address] Lubna Ellis MD 08/04/2024 Telephone [facility] MED & PEDS [address] [place] [address] Christina Rhodes MD chart prep 08/01/2024 Telephone [facility] MED & PEDS [address] [place] [address] Becky Acosta, PharmD Patient Education 07/28/2024 Travel 07/25/2024 Patient Outreach [facility] [address] [place] [address] Christina Rhodes MD Pre-visit Planning (Pre visit planning unable to LVM ) 06/30/2024 Telephone [facility] [address] [place] [phone] Christina Rhodes MD 06/28/2024 [facility] Health Information Management [address] [place] [address] Christina Rhodes MD 06/27/2024 2:00 PM EST Office Visit [facility] MED & PEDS [address] [place] [address] Christina Rhodes MD Diabetes mellitus without complication (CMS/HCC) (Primary Dx); Primary hypertension; Screening mammogram for breast cancer; Screening for colon cancer; Diabetes mellitus without complication (CMS/HCC); Smoking; Onychodystrophy; Encounter for immunization 06/27/2024 Travel 06/24/2024 Refill [facility] MED & PEDS [address] [place] [address] Christina Rhodes MD Depressive disorder 05/29/2024 Orders Only [facility] MED & PEDS [address] [place] [address] Christina Rhodes MD Hypercholesterolemia (Primary Dx); Primary hypertension 05/29/2024 Telephone [facility] [address] [place] [address] Christina Rhodes MD FYI 05/29/2024 Refill [facility] [address] [place] [address] Christina Rhodes MD Pure hypercholesterolemia, unspecified; Diabetes mellitus without complication (CMS/HCC) 05/08/2024 Orders Only [facility] MED & PEDS [address] [place] [address] Christina Rhodes MD 05/08/2024 Telephone [facility] MED & PEDS [address] [place] [address] Christina Rhodes MD Med Refill from Last 3 Months Immunizations Name Administration Dates Next Due DT (pediatric) 06/28/2005 Hep B, adult 09/30/2018,08/30/2018 Influenza High-dose Quadrivalent Preservative Fr ee 04/20/2022 Influenza Injectable Quadriv alant Preservative Free IIV4 MDCK 06/11/2020 Influenza injectable quadriv alent IIV4 with preservative 04/10/2016 Influenza injectable quadrivalent preservative f ree 07/05/2018 Influenza, seasonal, injectable, preservative fr ee 06/27/2024 Moderna Covid-19 Vaccine 12+ 11/06/2020,10/10/19 21 Pfizer Covid-19 Vaccine 12+ 06/27/2024 Pneumococcal Conjugate PCV 20 01/24/2024 Tdap 07/05/2018 Zoster, Recombinant 08/20/2020,06/12/2020 Family History Medical History Relation Name Comments Diabetes type II Daughter Relation Name Status Comments Daughter Social History Tobacco Use Types Packs/Day Years Used Date Smoking Tobacco: Every Day Cigarettes 1 57.2 Started: 1966 Smokeless Tobacco: Never Tobacco Cessation:Ready to Q uit: Yes; Counseling Given: Yes Depression Answer Date Recorded Patient Health Questionnaire-9 [...] Orientation Straight 04/13/2022 10 :24 AM EDT Last Filed Vital Signs Vital Sign Reading [...] Mass Index 36.28 08/08/2024 2:12 PM EST Plan of Treatment Upcoming Encounters Date Type Department Care Team (Late st Contact Info) Description 08/29/2024 3:00 PM EDT Medication Management [facility] MED & PEDS [address] [place] [address] Becky Acosta, PharmD [address] [place] [address] 11/09/2024 4:00 PM EDT Office Visit [facility] MED & PEDS [address] [place] [address] Christina Rhodes MD [address] [place] [address] Health Maintenance Due Date Last Done Comments CT Colonography 1956 Colonoscopy 1956 Colorectal Cancer Screening 1956 FIT DNA/Cologuard 1956 FIT 1956 FOBT 1956 SDOH Screening 1956 Sigmoidoscopy 1956 Eye Exam 1966 Hepatitis C Screening 1974 Lung Cancer Screening 2006 RSV Patients and Patients Aged 60 years or older (1 - Risk 60-74 years 1-dose series) 2016 Hepatitis B Vaccines (3 of 3 - 19+ 3-dose series) 03/02/2019 09/30/2018, 08/30/2018 Diabetes: Hemoglobin A1C 10/15/2024 025, 06/27/2024, 01/24/2024, Additional history exists Diabetes: Foot Exam 01/23/2025 01/24/2024 Depression Monitoring (PHQ-9) 02/05/2025 08/08/2024, 08/08/2024 Diabetes: Urine Protein Screening 02/27/2025 02/28/2024, 10/14/2020, 11/21/2019 Lipid Panel 02/27/2025 08/08/2024, 02/12, 10/14/2020 Alcohol/Substance Use Screening 08/08/2025 08/08/2024 Depression Screening 08/08/2025 08/08/2024, 08/08/19 Tobacco Screening 08/08/2025 08/08/2024 Mammogram 07/05/2026 07/05/2024 DTaP/Tdap/Td Vaccines (2 - Td or Tdap) 07/05/2028 07/05/2018 Zoster Vaccines Completed 08/20/2020, 06/12/2020 Pneumococcal Vaccine: 50+ Years Completed 01/24/2024 COVID-19 Vaccine Completed 06/27/2024, 02/2022, 11/06/2020, Additional history exists Influenza Vaccine Completed 06/27/2024, , 06/11/2020, Additional history exists HIB Vaccines Aged Out No longer eligi [...] patient's age to complete this topic Meningococcal Vaccine Aged Out No bruce jorge eligible based on patient's age to complete this topic RSV under 20 months Aged Out No longe r eligible based on patient's age to complete this topic Rotavirus Vaccines Aged Out No longer eligible based on patient's age to complete this topic Procedures Procedure Name Priority Date/Time Associated Diagnosis Comments URINALYSIS, COMPLETE, WITH REFLEX TO CULTURE Routine 08/08/2024 2:50 PM EST Mixed stress and urge urinary incontinence LIPID PANEL, STANDARD Routine 08/08/2024 2:46 PM EST Hypercholesterolemia POCT GLUCOSE Routine 08/08/2024 2:42 PM EST Diabetes mellitus without complication (CMS/HCC) Hypercholesterolemia HEMOGLOBIN A1C Routine 07/18/2024 12:09 PM EST BI MAMMOGRAM SCREENING TOMOSYNTHESIS BILATERAL Routine 07/05/2024 Screening mammogram for breast cancer POCT GLYCATED HEMOGLOBIN, TOTAL Routine 06/27/2024 3:37 PM EST Diabetes mellitus without complication (CMS/HCC) POCT GLUCOSE Routine 06/27/2024 3:37 PM EST Diabetes mellitus without complication (CMS/HCC) COMPREHENSIVE METABOLIC PANEL Routine 06/02/2024 1:19 PM EST Hypercholesterolemia Primary hypertension ALBUMIN, RANDOM URINE W/CREATININE Routine 02/28/2024 3:16 PM EDT Diabetes mellitus without complication (CMS/HCC) from Last 3 Months or Most Recently Relevant to Health Maintenance Results * (ABNORMAL) Urinalysis, Complete, with Reflex to Culture (08/08/2024 2:50 PM EST) Color Urine Yellow [facility] Appearance Urine Cloudy [facility] PH 5.5 5.0 - 9.0 [facility] Glucose Urine UA >=1000(A) Negative mg/dL [facility] Urine Blood Negative Negative [facility] Specific [place] - Urine >=1.030(H) 1.005 - 1.025 [facility] Urine Protein 30 (1+)(A) Neg-Trace mg/dL [facility] Urine Ketones Negative Negative mg/dL [facility] Nitrite Urine Negative Negative [facility] Leukocyte Esterase Urine Negative Negative [facility] RBC Urine 0-2 0 - 2 /HPF [facility] Urine WBC 6-10(A) 0 - 5 /HPF [facility] Urine Squamous Epithelial Cell >20 0 - 2 /HPF [facility] Urine Bacteria 4+ None Seen [facility] Hyaline Casts, Urine 0-2 0 - 2 /LPF [facility] Urine 08/08/2024 2:50 PM EST 08/08/2024 6:03 PM EST Narrative [facility] - 08/08/2024 6:16 PM EST [id number], Clean Catch us Christina Rhodes MD LAB URINE ORDERABLES Final Result [facility] [address] [place] [phone] [phone] * (ABNORMAL) Lipid Panel, Standard (08/08/2024 2:46 PM EST) Triglycerides 178(H) <150 mg/dL [facility] Comment:Desirable Triglyceri de: less than 150 mg/dLBorderline High Triglyceride 150-199 mg/dLHigh Triglyceride: 200-499 mg/dLVery High Triglyceride: greater than or equal to 5OO mg/dL Cholesterol 234(H) <200 mg/dL [facility] Comment:Desirable Cholestero l: less than 200 mg/dLBorderline High Cholesterol: 200-239 mg/dLHigh Cholesterol: greater than 239 mg/dL LDL Cholesterol Calculated 154(H) <100 mg/dL [facility] Comment:Desirable LDL: less than 100 mg/dLNear Optimal/Above Optimal LDL: 110- 129 mg/dLBorderline High LDL: 130-159 mg/dLHigh LDL: 160-189 mg/dLVery High LDL: greater than or equal to 190 mg/dL HDL Cholesterol 45 >40 mg/dL [facility] Comment:Desirable HDL: great er than 40 mg/dL Note: This HDL assay may give artificially low results in patients with liver disease. Blood Venous blood specimen / Unknown 08/08/2024 2:46 PM EST 08/08/2024 6:02 PM EST us Christina Rhodes MD LAB BLOOD ORDERABLES Final Result [facility] [address] [place] [phone] * (ABNORMAL) POCT Glucose (08/08/2024 2:42 PM EST) Only the most recent of2 resultswithin the time period is included. Glucose Blood, POC 356(A) 60 - 200 mg/dL QC Media Lot # [id number] Lot# Expiration Date [id number] Comment:random Blood Capillary blood specimen / Unknown 08/08/2024 2:42 PM EST Christina Rhodes MD POINT OF CARE TEST ENTER/ED IT ORDERABLES Final Result * Hemoglobin A1c (07/18/2024 12:09 PM EST) Blood Venous blood specimen / Unknown [facility] Provider LAB BLOOD ORDERABLES Ally l Result * BI Mammogram Screening Tomosynthesis Bilateral (07/05/2024) Anatomical Region Laterality Modality Breast Bilateral Mammography Christina Rhodes MD IMG BI PROCEDURES Final Res ult * (ABNORMAL) POCT HGB A1C (06/27/2024 3:37 PM EST) Hemoglobin A1C 11.1(A) 4.0 - 6.0 % QC Media Lot # [id number] Lot# Expiration Date [id number] Blood 06/27/2024 3:37 PM EST Christina Rhodes MD POINT OF CARE TEST ENTER/ED IT ORDERABLES Edited Result - Final * (ABNORMAL) Comprehensive Metabolic Panel (06/02/2024 1:19 PM EST) Sodium 141 135 - 145 mmol/L [facility] Potassium 5.0 3.3 - 5.1 mmol/L [facility] Chloride 105 96 - 108 mmol/L [facility] Carbon Dioxide 28 22 - 29 mmol/L [facility] Anion Gap 13 12 - 20 [facility] Urea Nitrogen (BUN) 22(H) 9 - 16 mg/dL [facility] Creatinine, Serum 0.78 0.5 - 1.4 mg/dL [facility] Estimated Glomerular Filt Rate >60 [facility] Comment:Chronic Kidney Disea se: Estimated GFR < 60 mL/min/[id number] Kidney Disease: Estimated GFR < 15 mL/min/1.73m2 Glucose 197(H) 60 - 115 mg/dL [facility] Calcium 9.4 8.4 - 10.2 mg/dL [facility] Bilirubin, Total 0.5 0.0 - 1.0 mg/dL [facility] Aspartate Amino Transferase 22 5 - 31 U/L [facility] Alanine Aminotransferase 20 0 - 31 U/L [facility] Total Protein 6.9 6.5 - 8.0 g/dL [facility] Albumin Level 4.3 3.5 - 5.0 g/dL [facility] Alkaline Phosphatase 77 39 - 117 U/L [facility] Blood Venous blood specimen / Unknown 06/02/2024 1:19 PM EST 06/02/2024 2:14 PM EST us Christina Rhodes MD LAB BLOOD ORDERABLES Final Result Performing Organization Address City/[facility]/ZIP Co de Phone Number [facility] [address] [place] [address] [phone] * (ABNORMAL) Albumin, Random Urine W/Creatinine (02/28/2024 3:16 PM EDT) Creatinine, Urine 154.19 mg/dL [facility] Microalbumin Urine 207.0 mg/L [facility] Microalbum Creatinine Ratio Ur 134.2(H) <30 ug/mg cr [facility] Comment:Albumin/Creatinine R atio Reference Ranges: Normal: < 30 ug/mg creatinine Microalbuminuria: 30 - 300 ug/mg creatinineClinical Albuminuria: > 300 ug/mg creatinine Urine (Urine, Random) 02/28/2024 3:16 PM EDT 02/28/2024 5:32 PM EDT us Christina Rhodes MD LAB URINE ORDERABLES Final Result [facility] [address] [place] [phone] [phone] from Last 3 Months or Most Recently Relevant to Health Maintenance Insurance [employer] Care Teams Department Chair Relationship Specialty Start Date End Date Christina Rhodes MD [address] [place] [address] PCP - General Internal Medicine 04/10/16 Becky Acosta PharmD [address] [place] [address] Pharmacist Internal Medicine 07/28/24
--- OUTSIDE RECORDS SUMMARY | 2024-08-08 18:28 | XMS_ITS | Encounter Summary ---
Author Organization [employer] Address [address] [place] [address] Care Team Providers Care Principal Clerk Typist Name Role Phone Christina Rhodes MD Primary Care Provider Becky Acosta PharmD Unavailable [phone] Encounter Details Date Type Department Care Team ([facility] Contact Info) Description 10/14/2022 Telephone [facility] MED & PEDS [address] [place] [address] Christina Rhodes MD [address] [place], [place] [phone] Social History Tobacco Use Types Packs/Day Years [...] Description 08/29/2024 3:00 PM EDT Medication Management [facility] MED & PEDS [address] [place] [address] Becky Acosta, PharmD [address] [place], [place] [phone] 11/09/2024 4:00 PM EDT Office Visit [facility] P[facility] [address] [place], [place] [phone] Christina Rhodes MD [address] [place] [address] documented as of this encounter Visit Diagnoses Not on filedocumented in this encounter Care Teams Principal Clerk Typist Relationship Specialty Start Date End Date Christina Rhodes MD [address] [place] [address] PCP - General Internal Medicine 04/10/16 Becky Acosta PharmD [address] [place] [phone] Pharmacist Internal Medicine 07/28/24 documented as of this encounter
--- OUTSIDE RECORDS SUMMARY | 2024-08-08 18:29 | XMS_ITS | Encounter Summary ---
Author Organization [employer] Address [address] [place] [address] Care Team Providers Care Petal Cutter Name Role Phone Christina Rhodes MD Primary Care Provider [phone] Becky Acosta PharmD Unavailable [phone] Reason for Visit * Reason Onset Date Comments Patient Education 08/01/2024 Encounter Details Date Type Department Care Team ([facility] st Contact Info) Description 08/01/2024 Telephone [facility] MED & PEDS [address] [place] [address] Becky Acosta, PharmD [address] [place] [address] Patient Education Social History Tobacco Use Types Packs/Day Years [...] encounter Miscellaneous Notes * Telephone Encounter - Becky Acosta PharmD - 08/01/2024 1:21 PM EST Contacted patient to set up CGM teaching appointment. If unable to reach patient, will do teaching at next CD visit on 08/29 documented in this encounter Plan of Treatment Upcoming Encounters Date Type Department Care Team (Late st Contact Info) Description 08/29/2024 3:00 PM EDT Medication Management [facility] MED & PEDS [address] [place] [address] Becky Acosta PharmD [address] [place] [address] 11/09/2024 4:00 PM EDT Office Visit [facility] MED [facility] PED[facility] [address] [place] [address] Christina Rhodes MD [address] [place] [address] documented as of this encounter Visit Diagnoses Not on filedocumented in this encounter Additional Health Concerns Assessment Noted Time PHQ-9 Depression Total Score: 21 024 3:36 PM EDT documented as of this encounter Care Teams Petal Cutter Relationship Specialty Start Date End Date Christina Rhodes MD [address] [place] [address] PCP - General Internal Medicine 04/10/16 Becky Acosta PharmD [address] [place] [address] Pharmacist Internal Medicine 07/28/24 documented as of this encounter
--- OUTSIDE RECORDS SUMMARY | 2024-08-08 18:29 | XMS_ITS | Encounter Summary ---
Author Organization [facility] Address [address] [place] [id number] Care Team Providers Care Solid Propellant Processor Name Role Phone Christina Rhodes MD Primary Care Provider Becky Acosta PharmD Unavailable [phone] Encounter Details Date Type Department Care Team (Late st Contact Info) Description 05/10/[address] [facility] [address] [place] [address] Lizeth Reyna Social History Tobacco Use Types Packs/Day Years [...] Description 08/29/2024 3:00 PM EDT Medication Management [facility] [address] [place] [address] Becky Acosta, PharmD [address] [place] [address] 11/09/2024 4:00 PM EDT Office Visit [facility] [address] [place] [address] Christina Rhodes MD [address] [place] [address] documented as of this encounter Visit Diagnoses Not on filedocumented in this encounter Care Teams Solid Propellant Processor Relationship Specialty Start Date End Date Christina Rhodes MD [address] [place] [address] PCP - General Internal Medicine 04/10/16 Becky Acosta PharmD [address] [place] [address] Pharmacist Internal Medicine 07/28/24 documented as of this encounter
--- OUTSIDE RECORDS SUMMARY | 2024-08-08 18:29 | XMS_ITS | Encounter Summary ---
Author Organization [employer] Address [address] [facility] [address], [place] [address] Care Team Providers Care Caretaker Resort Name Role Phone Christina Rhodes MD Primary Care Provider [phone] Becky Acosta PharmD Unavailable [phone] Encounter Details Date Type Department Care Team (Latest Contact Info) Description 07/28/2024 Travel Social History Tobacco Use Types Packs/Day [...] Description 08/29/2024 3:00 PM EDT Medication Management [facility] [address] [place] [address] Becky Acosta, PharmD [address] [place] [address] 11/09/2024 4:00 PM EDT Office Visit [facility] [address] [place] [address] Christina Rhodes MD [address] [place] [address] documented as of this encounter Visit Diagnoses Not on filedocumented in this encounter Additional Health Concerns Assessment Noted Time PHQ-9 Depression Total Score: 21 024 3:36 PM EDT documented as of this encounter Care Teams Caretaker Resort Relationship Specialty Start Date End Date Christina Rhodes MD [address] [place] [address] PCP - General Internal Medicine 04/10/16 Becky Acosta PharmD [address] [place] [address] Pharmacist Internal Medicine 07/28/24 documented as of this encounter
--- OUTSIDE RECORDS SUMMARY | 2024-08-08 18:29 | XMS_ITS | Encounter Summary ---
Author Organization [employer] Address [address] [place] [address] Care Team Providers Care Breeder Service Technician Name Role Phone Christina Rhodes MD Primary Care Provider Reason for Visit * Reason Comments Pre-visit Planning Pre visit planning u nable to LVM Encounter Details Date Type Department Care Team (Late st Contact Info) Description 07/25/2024 Patient Outreach [facility] [address] [place] [address] Christina Rhodes MD [address] [place] [address] Pre-visit Planning (Pre visit planning unable to LVM ) Social History Tobacco Use Types Packs/Day Years [...] AM EDT documented as of this encounter Progress Notes * Loren Cadet - 07/25/2024 2:13 PM EST CC Loren Matt placed outbound call to patient to complete pre-visit planning. No answer at this time. Patient name and were not confirmed. CC unable to leave a message due to [phone] not in service and [phone] the service you attempting use has been restricted or is unavailable. documented in this encounter Plan of Treatment Upcoming Encounters Date Type Department Care Team (Late st Contact Info) Description 08/29/2024 3:00 PM EDT Medication Management [facility] P[facility] [address] [place] [address] Becky Acosta, PharmD [address] [place], [place] [phone] 11/09/2024 4:00 PM EDT Office Visit [facility] [address] [place] [address] Christina Rhodes MD [address] [place] [address] documented as of this encounter Visit Diagnoses Not on filedocumented in this encounter Additional Health Concerns Assessment Noted Time PHQ-9 Depression Total Score: 21 024 3:36 PM EDT documented as of this encounter Care Teams Breeder Service Technician Relationship Specialty Start Date End Date Christina Rhodes MD [address] [place] [address] PCP - General Internal Medicine 04/10/16 documented as of this encounter
== END 2024-08-08 14:46 | disposition home or self-care (01) ==
LOC: HO.CHCLDS 14:45
PROVIDERS: Visit Provider Internal Medicine
DX: E78.00 Pure hypercholesterolemia, unspecified (principal); N39.46 Mixed incontinence
CPT/HCPCS: 36415; 80061; 81001; 87086

== ENCOUNTER 2024-09-18 15:59 | Emergency (ER) | payer MEDICARE, SELFPAY ==
--- NOTE | ~2024-09-18 | XR_ITS ---
CLINICAL HISTORY: needle in arm 2 view left humerus Comparison: None Findings: No fractures or dislocations. No significant arthritic change. No radiopaque foreign body. Nonspecific small soft tissue calcification adjacent to the proximal humerus. IMPRESSION: 1. No radiopaque foreign body. 2. No acute fracture. This document has been electronically signed by: Lupe Keller DO on 09/18/2024 17:39:58
[2024-09-18 16:17] VITALS: BP 173/63; PULSE 86; RESP 16; TEMP 36.6; O2SAT 98; BMI 40.3
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
[2024-09-18 19:00] VITALS: BP 173/63; PULSE 86; RESP 16; TEMP 36.6; O2SAT 98
--- OUTSIDE RECORDS SUMMARY | 2024-09-18 19:00 | XMS_ITS | Clinical Summary ---
Author Organization [address] [facility] Address [address] [place] [address] Phone Care Team Providers Care Director Of Aviation Name Role Phone Christina Rhodes MD Primary Care Provider [phone] Social History Tobacco Use Types Packs/Day Years Used Date Smoking Tobacco: Never Assessed Comments Unknown Sex and Gender Information Value Date Recorded Sex Assigned at Not on file Legal Sex Female 9:52 AM EST Gender Identity Not on file Sexual Orientation Not on file Plan of Treatment Upcoming Encounters Date Type Department Care Team ([facility] Contact Info) Description 09/20/2024 3:00 PM EDT Consult Orthopedic Surgery - [place] [id number] [phone] Sean Boone, DPM [address] [address] Health Maintenance Due Date Last Done Comments Breast Cancer Screening 1955 DTaP,Tdap,and Td Vaccines (1 - Tdap) 1975 Pneumococcal Vaccine: 50+ Ye ars (1 of 1 - PCV) 2006 Zoster Vaccines (1 of 2) 2006 COVID-19 Vaccine ( - 2023-2 5 season) 2024 Colorectal Cancer Screening: Colonoscopy 07/20/2024 Depression Screening 07/20/2024 Falls Risk Assessment 07/20/2024 Hepatitis C Screening 07/20/2024 Medicare Annual Wellness Visit 07/20/2024 Osteoporosis Screening (Bone Density Screening) 07/20/2024 Social Influencers of Health Screening 07/20/2024 Influenza Vaccine (Season Ended) 2025 RSV Immunization Adult Patie nts (1 - 1-dose 75+ series) 2031 HIB [...] age to complete this topic Meningococcal B Vaccine Aged Out No l onger eligible based on patient's age to complete this topic RSV Immunization Patients Un sonia 20 months Aged Out No longer eligible b ased on patient's age to complete this topic Varicella Vaccines Aged Out No longer eligible based on patient's age to complete this topic Insurance [employer] MED[employer]ARE [employer]AGE Care Teams Director Of Aviation Relationship Specialty Start Date End Date Christina Rhodes MD [address] [place] [id number] PCP - General Internal Medicine 07/20/24
--- OUTSIDE RECORDS SUMMARY | 2024-09-18 19:00 | XMS_ITS | Clinical Summary ---
Author Organization [employer] Address [address] [place] [address] 7 [place] [address] Care Team Providers Care Lap Regulator Name Role Phone Christina Rhodes MD Primary Care Provider [phone] Becky Acosta PharmD Unavailable [phone] Allergies No known active allergies Medications acetaminophen (Tylenol 8 Hour) 650 MG ER tablet Take 1 tablet by mouth in the morning and 1 tablet at noon and 1 tablet in the evening. 1 Active Blood Pressure kit Use daily Active enalapril (Vasotec) 20 MG tabletIndications :Essential (primary) hypertension Take 1 tablet (20 mg) by mouth 2 times daily. TAKE ONE TABLET BY MOUTH IN THE MORNING AND EVENING 180 tablet 3 4 Active FREESTYLE LITE test stripIndications: Diabetes mellitus without complication (CMS/HCC) Use to test blood sugar 2 times daily 100 each 12 4 01/24/20 25 Active Alcohol Swabs 70 % padsIndications:D iabetes mellitus without complication (CMS/HCC) Use to test blood sugar 2 times daily 100 each 4 Active busPIRone (Buspar) 5 MG tabletIndications :Anxiety disorder, unspecified Take 1 tablet (5 mg) by mouth 2 times daily. 180 tablet 3 4 01/24/20 25 Active UltiCare Short Pen Burns Flat 31G X 8 MM miscIndications:D iabetes mellitus without complication (CMS/HCC) USE ONE DAILY WITH TRESIBA 100 each 11 4 Active Lancets (OneTouch Delica Plus Ecifow19N) miscIndications:D iabetes mellitus without complication (CMS/HCC) TEST BLOOD SUGAR TWICE DAILY 100 each 11 4 Active repaglinide (Prandin) 0.5 MG tabletIndications :Diabetes mellitus without complication (CMS/HCC) Take 1 tablet (0.5 mg) by mouth before breakfast, before lunch, and before evening meal. 90 tablet 11 4 05/29/20 25 Active sertraline (Zoloft) 100 MG tabletIndications :Depressive disorder TAKE TWO TABLETS EVERY MORNING 60 tablet 5 Active amLODIPine (Norvasc) 10 MG tabletIndications :Primary hypertension Take 1 tablet (10 mg) by mouth Once per day. 30 tablet 11 5 06/27/19 26 Active insulin glargine (Lantus SoloStar) 100 UNIT/ML penIndications:Di abetes mellitus without complication ([facility]/HCC) Inject 50 Units under the skin at bedtime. 45 mL 3 5 06/27/19 26 Active nicotine (Nicoderm CQ) 21 MG/24HR patchIndications: Smoking Place 1 patch on the skin 1 (one) time each day at the same time. 30 patch 5 Active nicotine polacrilex (Commit) 4 MG lozengeIndication s:Smoking Dissolve 1 lozenge (4 mg) in the mouth every 2 (two) hours if needed for smoking cessation. 72 lozenge 5 Active Continuous Glucose Sensor (FreeStyle Virgie 3 Plus Sensor) miscIndications:D iabetes mellitus without complication ([facility]/HCC) 1 each every 15 days. 2 each 5 Active Tirzepatide (Mounjaro) 2.5 MG/0.5ML solution auto-injectorIndi cations:Diabetes mellitus without complication (CMS/HCC) Inject 2.5 mg under the skin 1 (one) time per week. Increase to 5mg after 4 weeks if tolerated 2 mL 5 Active atorvastatin (Lipitor) 80 MG tabletIndications :Hypercholesterol emia Take 1 tablet (80 mg) by mouth Once per day. 30 tablet 11 5 08/09/19 26 Active Active Problems Problem Noted Date Diagnosed Date Vulvovaginitis 04/22/2018 Anxiety 04/10/2016 Depressive disorder 04/10/2016 Diabetes mellitus without complication 6 Hypercholesterolemia 04/10/2016 Hypertensive disorder 04/10/2016 Encounters Date Type Department Care Team Description 09/18/2024 Orders Only [facility] External Provider, [facility] 09/15/2024 Travel 08/29/2024 Travel 08/15/2024 Telephone [facility] [address] [place] [address] Christina Rhodes MD Durable Medical Equipment 08/09/2024 Telephone [facility] [address] [place] [address] Patience Macario, RN Results 08/09/2024 Orders Only [address] [address] Christina Rhodes MD Hypercholesterolemia (Primary Dx) 08/08/2024 2:00 PM EST Office Visit [facility] [address] [place] [address] Chrisitna Rhodes MD Diabetes mellitus without complication (CMS/[facility]) (Primary Dx); Primary hypertension; Hypercholesterolemia; Smoking; Mixed stress and urge urinary incontinence; Dietary counseling; Exercise counseling; Class 2 severe obesity due to excess calories with serious comorbidity and body mass index (BMI) of 36.0 to 36.9 in adult (CMS/HCC) 08/08/2024 Travel 08/08/2024 Orders Only [facility] [address] [place] [address] ProviderLubna MD 08/04/2024 Telephone [facility] [address] [place] [address] Christina Rhodes MD chart prep 08/01/2024 Telephone [facility] [address] [place] [address] Becky Acosta, PharmD Patient Education 07/28/2024 Travel 07/25/2024 Patient Outreach [address] [address] Christina Rhodes MD Pre-visit Planning (Pre visit planning unable to LVM ) 06/30/[address] [address] Christina Rhodes MD 06/28/2024 Telephone [facility] [address] [place], [place] [phone] Christina Rhodes MD 06/27/2024 2:00 PM EST Office Visit [facility] [address] [place], [place] [phone] Christina Rhodes MD Diabetes mellitus without complication (CMS/HCC) (Primary Dx); Primary hypertension; Screening mammogram for breast cancer; Screening for colon cancer; Diabetes mellitus without complication (CMS/HCC); Smoking; Onychodystrophy; Encounter for immunization 06/27/2024 Travel 06/24/2024 Refill [facility] [address] [place] [address] Christina Rhodes MD Depressive disorder from Last 3 Months Immunizations Name Administration [...] Date Smoking Tobacco: Every Day Cigarettes 1 57.3 Started: 1966 Smokeless Tobacco: Never Tobacco Cessation:Ready [...] Care Team (Late st Contact Info) Description 10/13/2024 3:00 PM EDT Medication Management [facility] [address] [place] [address] Becky Acosta, PharmD [address] [place] [address] 11/09/2024 4:00 PM EDT Office Visit [facility] [address] [place] [address] Crhistina Rhodes MD [address] [place] [address] Health Maintenance Due Date Last Done Comments [...] Urine Protein Screening 02/27/2025 02/28/2024, 10/14/2020, 11/21/2019 Alcohol/Substance Use Screening 08/08/2025 08/08/2024 Depression Screening 08/08/2025 08/08/2024, 08/08/19 Lipid Panel 08/08/2025 08/08/2024, 02/12, 10/14/2020 Tobacco Screening 08/08/2025 08/08/2024 Mammogram 07/05/2026 07/05/2024 [...] Procedure Name Priority Date/Time Associated Diagnosis Comments XR HUMERUS LEFT Routine 09/18/2024 5:39 PM EDT CULTURE, URINE, ROUTINE Routine 08/08/2024 6:17 PM EST URINALYSIS, COMPLETE, WITH REFLEX TO CULTURE Routine [...] PM EST Diabetes mellitus without complication (CMS/HCC) ALBUMIN, RANDOM URINE W/CREATININE Routine 02/28/2024 3:16 PM EDT Diabetes mellitus without complication (CMS/HCC) from Last 3 Months or Most Recently Relevant to Health Maintenance Results * XR Humerus Left (09/18/2024 5:39 PM EDT) Anatomical Region Laterality Modality Upper Extremities, Humerus Left Radio graphic Imaging 09/18/2024 5:39 PM EDT Narrative 09/18/2024 5:41 PM EDT ? [facility] ?[address] ?[place] [address] ?XRay Report ? Signed ? Patient: DevinCriselda ?MR#: [id number] ?? 4 ? : 1955 ?Acct:[id number] ? Age/Sex: 69 / F ?ADM Date: 09/18/24 ? Loc: HO.ED ? Attending Dr: ? Ordering Physician: Marshall Richardson ?? Date of Service: 09/18/24 ?? Procedure(s): XR humerus LT ?? Accession Number(s): [id number] ? cc: Marshall Richardson; Christina Rhodes MD ? CLINICAL HISTORY: needle in arm ? 2 view left humerus ? Comparison: None ? Findings: ?? No fractures or dislocations. ?? No significant arthritic change. No radiopaque foreign body. ?? Nonspecific small soft tissue calcification adjacent to the proximal ?? humerus. ? IMPRESSION: ?? 1. No radiopaque foreign body. ?? 2. No acute fracture. ? This document has been electronically signed by: Lupe Keller DO on ?? 09/18/2024 17:39:58 ? Dictated By: ?Lupe Keller MD ? Signed By: ?<Electronically signed by Lupe Keller MD in OV> ?09/18/24 1740 ? DD/ 173 ? TD/TT: 09/18/241738 ? School Office Manager: ? Procedure Note Mary Gonzales - 09/18/[address] [place] [address] XRay Report Signed Patient: Criselda BeltranMR#: [id number] 4 : 6Acct:[id number] Age/Sex: 69 / FADM Date: 09/18/24 Loc: HO.ED Attending Dr: Ordering Physician: Marshall Richardson Date of Service: 09/18/24 Procedure(s): XR humerus LT Accession Number(s): [id number] cc: Marshall Richardson; Christina Rhodes MD CLINICAL HISTORY: needle in arm 2 view left humerus Comparison: None Findings: No fractures or dislocations. No significant arthritic change. No radiopaque foreign body. Nonspecific small soft tissue calcification adjacent to the proximal humerus. IMPRESSION: 1. No radiopaque foreign body. 2. No acute fracture. This document has been electronically signed by: Lupe Keller DO on 09/18/2024 17:39:58 Dictated By: Lupe Keller MD Signed By: <Electronically signed by Lupe Keller MD in OV> 09/18/24 1740 DD/ 1739 TD/TT: 09/18/24 1739 School Office Manager: [facility] External Provider IMG XR PROCEDURES Final Result * Culture, Urine, Routine (08/08/2024 6:17 PM EST) Urine Urine specimen obtained by clean catch procedure / Unknown 08/08/2024 6:17 PM EST 08/08/2024 6:17 PM EST Comment:[facility] Narrative [facility] - 08/10/2024 10:00 AM EST Urine Culture No growth. Specimen Source: Urine clean catch Christina Rhodes MD LAB MICROBIOLOGY - GENERAL ORDERABLES Final Result [facility] [address] [place] [phone] * (ABNORMAL) Urinalysis, Complete, with Reflex to Culture (08/08/2024 2:50 PM EST) Color Urine Yellow [facility] Appearance Urine Cloudy [facility] PH 5.5 5.0 - 9.0 [facility] Glucose Urine UA >=1000(A) Negative mg/dL [facility] Urine Blood Negative Negative [facility] Specific [place] - Urine >=1.030(H) 1.005 - 1.025 [facility] Urine Protein 30 (1+)(A) Neg-Trace mg/dL [facility] Urine Ketones Negative Negative mg/dL [facility] Nitrite Urine Negative Negative [facility] Leukocyte Esterase Urine Negative Negative [facility] RBC Urine 0-2 0 - 2 /HPF [facility] Urine WBC 6-10(A) 0 - 5 /HPF [facility] Urine Squamous Epithelial Cell >20 0 - 2 /HPF [facility] Urine Bacteria 4+ None Seen [facility] Hyaline Casts, Urine 0-2 0 - 2 /LPF [facility] Urine 08/08/2024 2:50 PM EST 08/08/2024 6:03 PM EST Narrative [facility] - 08/08/2024 6:16 PM EST [id number], Clean Catch us Christina Rhodes MD LAB URINE ORDERABLES Final Result [facility] [address] [place] [address] [phone] * (ABNORMAL) Lipid Panel, Standard (08/08/2024 2:46 PM EST) Triglycerides 178(H) <150 mg/dL [facility] Comment:Desirable Triglyceri de: less than 150 mg/dLBorderline High Triglyceride 150-199 mg/dLHigh Triglyceride: 200-499 mg/dLVery High Triglyceride: greater than or equal to 5OO mg/dL Cholesterol 234(H) <200 mg/dL [facility] Comment:Desirable Cholestero l: less than 200 mg/dLBorderline High Cholesterol: 200-239 mg/dLHigh Cholesterol: greater than 239 mg/dL LDL Cholesterol Calculated 154(H) <100 mg/dL [facility] Comment:Desirable LDL: less than 100 mg/dLNear Optimal/Above Optimal LDL: 110- 129 mg/dLBorderline High LDL: 130-159 mg/dLHigh LDL: 160-189 mg/dLVery High LDL: greater than or equal to 190 mg/dL HDL Cholesterol 45 >40 mg/dL [facility] Comment:Desirable HDL: great er than 40 mg/dL Note: This HDL assay may give artificially low results in patients with liver disease. Blood Venous blood specimen / Unknown 08/08/2024 2:46 PM EST 08/08/2024 6:02 PM EST Christina Rhodes MD LAB BLOOD ORDERABLES Final Result [facility] [address] [place] [phone] * (ABNORMAL) POCT Glucose (08/08/2024 2:42 PM EST) Only the most recent of2 resultswithin the time period is included. Glucose Blood, POC 356(A) 60 - 200 mg/dL QC Media Lot # [id number] Lot# Expiration Date [id number] Comment:random Blood Capillary blood specimen / Unknown 08/08/2024 2:42 PM EST Christina Rhodes MD POINT OF CARE TEST ENTER/ED IT ORDERABLES Final Result * Hemoglobin A1c (07/18/2024 12:09 PM EST) Blood Venous blood specimen / Unknown Historical Provider LAB BLOOD ORDERABLES Ally l Result * BI Mammogram Screening Tomosynthesis Bilateral (07/05/2024) Anatomical Region Laterality Modality Breast Bilateral Mammography Christina Rhodes MD IMG BI PROCEDURES Final Res ult * (ABNORMAL) POCT HGB A1C (06/27/2024 3:37 PM EST) Hemoglobin A1C 11.1(A) 4.0 - 6.0 % QC Media Lot # [id number] Lot# Expiration Date [id number] Blood 06/27/2024 3:37 PM EST Christina Rhodes MD POINT OF CARE TEST ENTER/ED IT ORDERABLES Edited Result - Final * (ABNORMAL) Albumin, Random Urine W/Creatinine (02/28/2024 3:16 PM EDT) Creatinine, Urine 154.19 mg/dL [facility] Microalbumin Urine 207.0 mg/L [facility] Microalbum Creatinine Ratio Ur 134.2(H) <30 ug/mg cr [facility] Comment:Albumin/Creatinine R atio Reference Ranges: Normal: < 30 ug/mg creatinine Microalbuminuria: 30 - 300 ug/mg creatinineClinical Albuminuria: > 300 ug/mg creatinine Urine (Urine, Random) 02/28/2024 3:16 PM EDT 02/28/2024 5:32 PM EDT Christina Rhodes MD LAB URINE ORDERABLES Final Result [facility] [address] [place] [address] [phone] from Last 3 Months or Most Recently Relevant to Health Maintenance Insurance [employer] MEDICARE REPLACEMENT Care Teams Lap Regulator Relationship Specialty Start Date End Date Christina Rhodes MD [address] [place] [address] PCP - General Internal Medicine 04/10/16 Becky Acosta PharmD [address] [place] [phone] Pharmacist Internal Medicine 07/28/24
--- OUTSIDE RECORDS SUMMARY | 2024-09-18 19:00 | XMS_ITS | Encounter Summary ---
Author Organization [facility] Address [address] [place] [address] Care Team Providers Care Flitch Hanger Name Role Phone Christina Rhodes MD Primary Care Provider Becky Acosta PharmD Unavailable [phone] Encounter Details Date Type Department Care Team (Late st Contact Info) Description 05/10/2023 Abstract [facility] [address] [place] [address] Lizeth Reyna Social History Tobacco Use Types [...] Description 10/13/2024 3:00 PM EDT Medication Management [facility] [address] [place] [address] Becky Acosta, PharmD [address] [place] [address] 11/09/2024 4:00 PM EDT Office Visit [facility] [address] [place] [address] Christina Rhodes MD [address] [place] [address] documented as of this encounter Visit Diagnoses Not on filedocumented in this encounter Care Teams Flitch Hanger Relationship Specialty Start Date End Date Christina Rhodes MD [address] [place] [address] PCP - General Internal Medicine 04/10/16 Becky Acosta PharmD [address] [place] [address] Pharmacist Internal Medicine 07/28/24 documented as of this encounter
--- OUTSIDE RECORDS SUMMARY | 2024-09-18 19:00 | XMS_ITS | Encounter Summary ---
Author Organization [employer] Address [address] [facility] 7 [place] [address] Care Team Providers Care Anodic Operator Name Role Phone Christina Rhodes MD Primary Care Provider [phone] Becky Acosta PharmD Unavailable [phone] Encounter Details Date Type Department Care Team (Latest Contact Info) Description 09/15/2024 Travel Social History Tobacco Use Types Packs/Day Years Used Date Smoking Tobacco: Every Day Cigarettes 1 57.3 Started: 1966 Smokeless Tobacco: Never Depression Answer [...] Description 10/13/2024 3:00 PM EDT Medication Management [facility] [address] [place] [address] Becky Acosta PharmD [address] [place] [address] 11/09/2024 4:00 PM EDT Office Visit [facility] [address] [place] [address] Christina Rhodes MD [address] [place] [address] documented as of this encounter Visit Diagnoses Not on filedocumented in this encounter Additional Health Concerns Assessment Noted Time PHQ-9 Depression Total Score: 24 025 2:49 PM EST documented as of this encounter Care Teams Anodic Operator Relationship Specialty Start Date End Date Christina Rhodes MD [address] [place] [address] PCP - General Internal Medicine 04/10/16 Becky Acosta, PharmD [address] [place] [address] Pharmacist Internal Medicine 07/28/24 documented as of this encounter
--- OUTSIDE RECORDS SUMMARY | 2024-09-18 19:00 | XMS_ITS | Encounter Summary ---
Author Organization [employer] Address [address] [place] [address] Care Team Providers Care Receptionist Doctor'S Office Name Role Phone Christina Rhodes MD Primary Care Provider [phone] Becky Acosta PharmD Unavailable [phone] Reason for Visit * Reason Onset Date Comments Med Refill 05/29/2024 Encounter Details Date Type Department Care Team (Late st Contact Info) Description 05/29/2024 Refill [facility] [address] [place] [address] Christina Rhodes MD [address] [place] [address] Pure hypercholesterolemia, unspecified; Diabetes mellitus without complication [...] 0.5 MG tablet To be sent to: [facility] documented in this encounter Plan of Treatment Upcoming Encounters Date Type Department Care Team (Late st Contact Info) Description 10/13/2024 3:00 PM EDT Medication Management [facility] [address] [place] [address] Becky Acosta PharmD [address] [place] [address] 11/09/2024 4:00 PM EDT Office Visit [facility] [address] [place] [address] Christina Rhodes MD [address] [place] [address] documented as of this encounter Visit Diagnoses Diagnosis Pure hypercholesterolemia, unspecified Diabetes mellitus without complication (CMS/HCC) Type II or unspecified type diabetes mellitus without mention of complication, not stated as uncontrolled documented in this encounter Additional Health Concerns Assessment Noted Time PHQ-9 Depression Total Score: 21 024 3:36 PM EDT documented as of this encounter Care Teams Receptionist Doctor'S Office Relationship Specialty Start Date End Date Christina Rhodes MD [address] [place] [address] PCP - General Internal Medicine 04/10/16 Becky Acosta, PharmD [address] [place], [place] [phone] Pharmacist Internal Medicine 07/28/24 documented as of this encounter
--- OUTSIDE RECORDS SUMMARY | 2024-09-18 19:00 | XMS_ITS | Encounter Summary ---
Author Organization [employer] Address [address] [place] [address] Care Team Providers Care Middle [employer] Technology Teacher Name Role Phone Christina Rhodes MD Primary Care Provider [phone] Becky Acosta PharmD Unavailable [phone] Reason for Visit * Reason Comments Med Refill Encounter Details Date Type Department Care Team ([facility] Contact Info) Description 01/04/2023 Refill [facility] [address] [place] [address] Christina Rhodes MD [address] [place] [address] Social History Tobacco Use Types Packs/Day Years [...] Upcoming Encounters Date Type Department Care Team ([facility] Contact Info) Description 10/13/2024 3:00 PM EDT Medication Management [facility] [address] [place], [place] [phone] Becky Acosta, PharmD [address] [place] [address] 11/09/2024 4:00 PM EDT Office Visit [facility] [address] [place], [place] [phone] Christina Rhodes MD [address] [place] [address] documented as of this encounter Visit Diagnoses Not on filedocumented in this encounter Care Teams [employer] Technology Teacher Relationship Specialty Start Date End Date Christina Rhodes MD [address] [place] [address] PCP - General Internal Medicine 04/10/16 Becky Acosta PharmD [address] [place] [address] Pharmacist Internal Medicine 07/28/24 documented as of this encounter
--- OUTSIDE RECORDS SUMMARY | 2024-09-18 19:00 | XMS_ITS | Encounter Summary ---
Author Organization [employer] Address [address] [place] [address] Care Team Providers Care Junior Engineer Name Role Phone Christina Rhodes MD Primary Care Provider [phone] Becky Acosta PharmD Unavailable [phone] Reason for Visit * Reason Comments Med Refill Encounter Details Date Type Department Care Team ([facility] Contact Info) Description 07/28/2022 Refill [facility] [address] [place] [address] Christina Rhodes MD [address] [place] [address] Depressive disorder (Primary Dx) Social History Tobacco [...] Upcoming Encounters Date Type Department Care Team ([facility] Contact Info) Description 10/13/2024 3:00 PM EDT Medication Management [facility] [address] [place] [address] Becky Acotsa, PharmD [address] [place] [address] 11/09/2024 4:00 PM EDT Office Visit [facility] [address] [place] [address] Christina Rhodes MD [address] [place] [address] documented as of this encounter Visit Diagnoses Diagnosis Depressive disorder- Primary Depressive disorder, not elsewhere classified documented in this encounter Care Teams Junior Engineer Relationship Specialty Start Date End Date Christina Rhodes MD [address] [place] [address] PCP - General Internal Medicine 04/10/16 Becky Acosta PharmD [address] [place], [place] [phone] Pharmacist Internal Medicine 07/28/24 documented as of this encounter
--- OUTSIDE RECORDS SUMMARY | 2024-09-18 19:00 | XMS_ITS | Encounter Summary ---
Author Organization [email or web address] Address [address] [place] [address] Care Team Providers Care Floor Winder Name Role Phone Christina Rhodes MD Primary Care Provider Becky Acosta PharmD Unavailable [phone] Encounter Details Date Type Department Care Team ([facility] Contact Info) Description 10/14/2022 Telephone [facility] [address] [place] [address] Christina Rhodes MD [address] [place], [place] [phone] Social History Tobacco Use Types Packs/Day Years [...] Department Care Team (Late Contact Info) Description 10/13/2024 3:00 PM EDT Medication Management [facility] [address] [place] [address] Becky Acosta, PharmD [address] [place], [place] [phone] 11/09/2024 4:00 PM EDT Office Visit [facility] [address] [place], [place] [phone] Christina Rhodes MD [address] [place] [address] documented as of this encounter Visit Diagnoses Not on filedocumented in this encounter Care Teams Floor Winder Relationship Specialty Start Date End Date Christina Rhodes MD [address] [place] [address] PCP - General Internal Medicine 04/10/16 Becky Acosta PharmD [address] [place] [address] Pharmacist Internal Medicine 07/28/24 documented as of this encounter
--- OUTSIDE RECORDS SUMMARY | 2024-09-18 19:00 | XMS_ITS | Encounter Summary ---
Author Organization [employer] Address [address] [place] [address] Care Team Providers Care Costume Shop Manager Name Role Phone Christina Rhodes MD Primary Care Provider [phone] Becky Acosta PharmD Unavailable [phone] Reason for Visit * Reason Comments Med Refill Encounter Details Date Type Department Care Team (Late st Contact Info) Description 01/10/2024 Refill [facility] [address] [place] [address] Christina Rhodes MD 505 [place] [address] Essential (primary) hypertension; Anxiety disorder, unspecified Social [...] Description 10/13/2024 3:00 PM EDT Medication Management [facility] [address] [place], [place] [phone] Becky Acosta, PharmD [address] [place] [address] 11/09/2024 4:00 PM EDT Office Visit [facility] [address] [place], [place] [phone] Christina Rhodes MD 505 [place] [address] documented as of this encounter Visit Diagnoses Diagnosis Essential (primary) hypertension Unspecified essential hypertension Anxiety disorder, unspecified documented in this encounter Care Teams Costume Shop Manager Relationship Specialty Start Date End Date Christina Rhodes MD 505 [place] [address] PCP - General Internal Medicine 04/10/16 Becky Acosta PharmD [address] [place] [address] Pharmacist Internal Medicine 07/28/24 documented as of this encounter
--- OUTSIDE RECORDS SUMMARY | 2024-09-18 19:00 | XMS_ITS | Encounter Summary ---
Author Organization [employer] Address [address] [facility] 7 [place] [address] Care Team Providers Care Sr. Merchandise Planner Name Role Phone Christina Rhodes MD Primary Care Provider [phone] Becky Acosta PharmD Unavailable [phone] Encounter Details Date Type Department Care Team (Latest Contact Info) Description 08/09/2024 Orders Only [facility] [address] [place] [address] Christina Rhodes MD 505 [place] [address] Hypercholesterolemia (Primary Dx) Social History Tobacco Use Types [facility] 505 [place] [address] Becky Acosta PharmD 230 [place] [address] 11/09/2024 4:00 PM EDT Office Visit [facility] MED & PEDS 505 [place] [address] Christina Rhodes MD 505 [place] [address] documented as of this encounter Visit Diagnoses Diagnosis Hypercholesterolemia- Primary Pure hypercholesterolemia documented in this encounter Additional Health Concerns Assessment Noted Time PHQ-9 Depression Total Score: 24 025 2:49 PM EST documented as of this encounter Care Teams Sr. Merchandise Planner Relationship Specialty Start Date End Date Christina Rhodes MD [address] [place] [address] PCP - General Internal Medicine 04/10/16 Becky Acosta PharmD 230 [place] [address] Pharmacist Internal Medicine 07/28/24 documented as of this encounter
--- OUTSIDE RECORDS SUMMARY | 2024-09-18 19:00 | XMS_ITS | Encounter Summary ---
Author Organization [employer] Address [address] [facility] 7t [place] [address] Care Team Providers Care Waiter/Waitress Dining Car Name Role Phone Christina Rhodes MD Primary Care Provider [phone] Becky Acosta PharmD Unavailable [phone] Encounter Details Date Type Department Care Team (Late st Contact Info) Description 09/18/2024 Orders Only [facility] External Provider, [facility] Social History Tobacco Use Types Packs/Day Years [...] Description 10/13/2024 3:00 PM EDT Medication Management [facility] MED & PEDS [address] [place] [address] Becky Acosta, PharmD 230 [place] [address] 11/09/2024 4:00 PM EDT Office Visit [facility] MED & PEDS 505 [place], [place] [phone] Christina Rhodes MD 505 [place] [address] documented as of this encounter Procedures Procedure Name Priority Date/Time Associated Diagnosis Comments XR HUMERUS LEFT Routine 09/18/2024 5:39 PM EDT documented in this encounter Results * XR Humerus Left (09/18/2024 5:39 PM EDT) Anatomical Region Laterality Modality Upper Extremities, Humerus Left Radio graphic Imaging 09/18/2024 5:39 PM EDT Narrative 09/18/2024 5:41 PM EDT ? [facility] ?[address] ?[place] [address] ?XRay Report ? Signed ? Patient: Devin,Criselda ?MR#: [id number] ?? 4 ? : 1955 ?Acct:[id number] ? Age/Sex: 69 / F ?ADM Date: 04/07/25 ? Loc: HO.ED ? Attending Dr: ? Ordering Physician: Marshall Richardson ?? Date of Service: 09/18/24 ?? Procedure(s): XR humerus LT ?? Accession Number(s): [id number] ? cc: Marshall Richardson; Christina Rhodes MD [...] MD in OV> ?09/18/24 1740 ? DD/ 1739 ? TD/TT: 09/18/24 1739 ? Manager Business Management: ? Procedure Note Donobey, Image - 09/18/[address] [address] XRay Report Signed Patient: Chuy Beltran#: [id number] 4 : 1955cct:[id number] Age/Sex: 69 / FADM Date: 09/18/24 Loc: HO.ED Attending Dr: Ordering Physician: Marshall Richardson Date of Service: 09/18/24 Procedure(s): XR humerus LT Accession Number(s): [id number] cc: Marshall Richardson; Christina Rhodes MD CLINICAL [...] by Lupe Keller MD in OV> 09/18/24 174 DD/ 173 TD/TT: 09/18/24 1739 Manager Business Management: [facility] External Provider IMG XR PROCEDURES Final Result documented in this encounter Visit Diagnoses Not on filedocumented in this encounter Additional Health Concerns Assessment Noted Time PHQ-9 Depression Total Score: 24 08/08/ 025 2:49 PM EST documented as of this encounter Care Teams Waiter/Waitress Dining Car Relationship Specialty Start Date End Date Christina Rhodes MD [address] [place] [address] PCP - General Internal Medicine 04/10/16 Becky Acosta PharmD [address] [place] [address] Pharmacist Internal Medicine 07/28/24 documented as of this encounter
--- OUTSIDE RECORDS SUMMARY | 2024-09-18 19:00 | XMS_ITS | Encounter Summary ---
Author Organization [employer] Address [address] [place] [address] Care Team Providers Care Subassemblies Wirer Name Role Phone Christina Rhodes MD Primary Care Provider [phone] Becky Acosta PharmD Unavailable [phone] Reason for Visit * Reason Comments Med Refill Encounter Details Date Type Department Care Team ([facility] Contact Info) Description 02/11/2023 Refill [facility] MED & PEDS 505 [place] [address] Christina Rhodes MD 505 [place] [address] Diabetes mellitus without complication ([facility]) Social History Tobacco Use Types Packs/Day [...] Upcoming Encounters Date Type Department Care Team ([facility] Contact Info) Description 10/13/2024 3:00 PM EDT Medication Management [facility] MED & PEDS [address] [place], [place] [phone] Becky Acosta, PharmD 230 [place] [address] 11/09/2024 4:00 PM EDT Office Visit [facility] MED & PEDS [address] [place], [place] [phone] Christina Rhodes MD 505 [place] [address] documented as of this encounter Visit Diagnoses Diagnosis Diabetes mellitus without complication ([facility]) Type II or unspecified type diabetes mellitus without mention of complication, not stated as uncontrolled documented in this encounter Care Teams Subassemblies Wirer Relationship Specialty Start Date End Date Christina Rhodes MD 505 [place] [address] PCP - General Internal Medicine 04/10/16 Becky Acosta PharmD [address] [place] [address] Pharmacist Internal Medicine 07/28/24 documented as of this encounter
--- OUTSIDE RECORDS SUMMARY | 2024-09-18 19:00 | XMS_ITS | Encounter Summary ---
Author Organization [employer] Address [address] [place] [address] Care Team Providers Care Personnel And Payroll Technician Name Role Phone Christina Rhodes MD Primary Care Provider [phone] Becky Acosta PharmD Unavailable [phone] Reason for Visit * Reason Comments Med Refill Encounter Details Date Type Department Care Team ([facility] Contact Info) Description 09/23/2023 Refill [facility] MED & PEDS [address] [place] [address] Christina Rhodes MD 505 [place] [address] Essential (primary) hypertension Social History Tobacco Use [...] Description 10/13/2024 3:00 PM EDT Medication Management [facility] MED & PEDS [address] [place], [place] [phone] Becky Acosta, PharmD 230 [place] [address] 11/09/2024 4:00 PM EDT Office Visit [facility] MED & PEDS [address] [place] [address] Christina Rhodes MD 505 [place] [address] documented as of this encounter Visit Diagnoses Diagnosis Essential (primary) hypertension Unspecified essential hypertension documented in this encounter Care Teams Personnel And Payroll Technician Relationship Specialty Start Date End Date Christina Rhodes MD 505 [place] [address] PCP - General Internal Medicine 04/10/16 Becky Acosta PharmD 230 [place] [address] Pharmacist Internal Medicine 07/28/24 documented as of this encounter
--- OUTSIDE RECORDS SUMMARY | 2024-09-18 19:00 | XMS_ITS | Encounter Summary ---
Author Organization [employer] Address [address] [place] [address] Care Team Providers Care Cpo Name Role Phone Christina Rhodes MD Primary Care Provider [phone] Becky Acosta PharmD Unavailable [phone] Encounter Details Date Type Department Care Team ([facility] Contact Info) Description 05/08/2024 Orders Only [facility] MED & PEDS [address] [place] [address] Christina Rhodes MD [address] [place] [address] Social History Tobacco Use Types Packs/Day Years [...] Description 10/13/2024 3:00 PM EDT Medication Management [facility] MED & PED[facility] [address] [place] [address] Becky Acosta, PharmD [address] [place] [address] 11/09/2024 4:00 PM EDT Office Visit [facility] MED & PEDS [address] [place] [address] Christina Rhodes MD 505 [place] [address] documented as of this encounter Visit Diagnoses Not on filedocumented in this encounter Additional Health Concerns Assessment Noted Time PHQ-9 Depression Total Score: 21 024 3:36 PM EDT documented as of this encounter Care Teams Cpo Relationship Specialty Start Date End Date Christina Rhodes MD [address] [place] [address] PCP - General Internal Medicine 04/10/16 Becky Acosta PharmD [address] [place] [address] Pharmacist Internal Medicine 07/28/24 documented as of this encounter
--- OUTSIDE RECORDS SUMMARY | 2024-09-18 19:00 | XMS_ITS | Encounter Summary ---
Author Organization [employer] Address [address] [facility] 7t [place] [address] Care Team Providers Care Innovation Analyst Name Role Phone Christina Rhodes MD Primary Care Provider [phone] Becky Acosta PharmD Unavailable Encounter Details Date Type Department Care Team (Late st Contact Info) Description 08/08/2024 Orders Only [facility] MED & PEDS [address] [place] [address] Provider, MD [place] Social History Tobacco Use [...] Description 10/13/2024 3:00 PM EDT Medication Management [facility] MED & PEDS [address] [place] [address] Becky Acosta PharmD 230 [place] [address] 11/09/2024 4:00 PM EDT Office Visit [facility] MED & PEDS [address] [place], [place] [phone] Christina Rhodes MD [address] [place] [address] documented as of this encounter Procedures Procedure Name Priority Date/Time Associated Diagnosis Comments CULTURE, URINE, ROUTINE Routine 08/08/2024 6:17 PM EST HEMOGLOBIN A1C Routine 07/18/2024 12:09 PM EST documented in this encounter Results * Culture, Urine, Routine (08/08/2024 6:17 PM EST) Urine Urine specimen obtained by clean catch procedure / Unknown 08/08/2024 6:17 PM EST 08/08/2024 6:17 PM EST Comment:[facility] Narrative [facility] - 08/10/2024 10:00 AM EST Urine Culture No growth. Specimen Source: Urine clean catch us Christina Rhodes MD LAB MICROBIOLOGY - GENERAL ORDERABLES Final Result [facility] [address] [place] [address] [phone] * Hemoglobin A1c (07/18/2024 12:09 PM EST) Blood Venous blood specimen / Unknown us Historical Provider LAB BLOOD ORDERABLES Ally l Result documented in this encounter Visit Diagnoses Not on filedocumented in this encounter Additional Health Concerns Assessment Noted Time PHQ-9 Depression Total Score: 24 025 2:49 PM EST documented as of this encounter Care Teams Innovation Analyst Relationship Specialty Start Date End Date Christina Rhodes MD [address] [place] [address] PCP - General Internal Medicine 04/10/16 Becky Acosta PharmD [address] [place] [address] Pharmacist Internal Medicine 07/28/24 documented as of this encounter
--- OUTSIDE RECORDS SUMMARY | 2024-09-18 19:00 | XMS_ITS | Encounter Summary ---
Author Organization [employer] Address [address] [place] [address] 7 [place] [address] Care Team Providers Care Feed Mixer Helper Name Role Phone Christina Rhodes MD Primary Care Provider [phone] Becky Acosta PharmD Unavailable [phone] Encounter Details Date Type Department Care Team (Latest Contact Info) Description 05/29/2024 Orders Only [facility] MED & PEDS [address] [place] [address] hCristina Rhodes MD [address] [place] [address] Hypercholesterolemia (Primary Dx); Primary hypertension Social History [...] Care Team ( st Contact Info) Description 10/13/2024 3:00 PM EDT Medication Management [facility] [address] [place] [address] Becky Acosta, PharmD [address] [place] [address] 11/09/2024 4:00 PM EDT Office Visit [facility] PED[facility] [address] [place], [place] [phone] Christina Rhodes MD [address] [place], [place] [phone] documented as of this encounter Procedures Procedure Name Priority Date/Time Associated Diagnosis Comments COMPREHENSIVE METABOLIC PANEL Routine 06/02/2024 1:19 PM EST Hypercholesterolemia Primary hypertension documented in this encounter Results * (ABNORMAL) Comprehensive Metabolic Panel (06/02/2024 1:19 PM EST) Sodium 141 135 - 145 mmol/L [facility] Potassium 5.0 3.3 - 5.1 mmol/L [facility] Chloride 105 96 - 108 mmol/L [facility] Carbon Dioxide 28 22 - 29 mmol/L [facility] Anion Gap 13 12 - 20 [facility] Urea Nitrogen (BUN) 22(H) 9 - 16 mg/dL [facility] Creatinine, Serum 0.78 0.5 - 1.4 mg/dL [facility] Estimated Glomerular Filt Rate >60 [facility] Comment:Chronic Kidney Disea se: Estimated GFR < 60 mL/min/1.02q3Sqnyji Kidney Disease: Estimated GFR < 15 mL/min/1.73m2 Glucose 197(H) 60 - 115 mg/dL [facility] Calcium 9.4 8.4 - 10.2 mg/dL [facility] Bilirubin, Total 0.5 0.0 - 1.0 mg/dL [facility] Aspartate Amino Transferase 22 5 - 31 U/L [facility] Alanine Aminotransferase 20 0 - 31 U/L [facility] Total Protein 6.9 6.5 - 8.0 g/dL [facility] Albumin Level 4.3 3.5 - 5.0 g/dL [facility] Alkaline Phosphatase 77 39 - 117 U/L [facility] Blood Venous blood specimen / Unknown 06/02/2024 1:19 PM EST 06/02/2024 2:14 PM EST Christina Rhodes MD LAB BLOOD ORDERABLES Final Result [facility] [address] [place] [address] [phone] documented in this encounter Visit Diagnoses Diagnosis Hypercholesterolemia- Primary Pure hypercholesterolemia Primary hypertension Unspecified essential hypertension documented in this encounter Additional Health Concerns Assessment Noted Time PHQ-9 Depression Total Score: 21 024 3:36 PM EDT documented as of this encounter Care Teams Feed Mixer Helper Relationship Specialty Start Date End Date Christina Rhodes MD [address] [place] [address] PCP - General Internal Medicine 04/10/16 Becky Acosta PharmD [address] [place] [address] Pharmacist Internal Medicine 07/28/24 documented as of this encounter
--- OUTSIDE RECORDS SUMMARY | 2024-09-18 19:00 | XMS_ITS | Encounter Summary ---
Author Organization [employer] Address [address] [place] [address] Care Team Providers Care Venue Coordinator Name Role Phone Christina Rhodes MD Primary Care Provider Becky Acosta PharmD Unavailable [phone] Encounter Details Date Type Department Care Team (Late st Contact Info) Description 09/06/2023 Orders Only [facility] MED [facility] PEDS [address] [place] [address] Christina Rhodes MD [address] [place] [address] Diabetes mellitus without complication (CMS/HCC) (Primary Dx) [...] Description 10/13/2024 3:00 PM EDT Medication Management [facility] [address] [place] [address] Becky Acosta, PharmD [address] [place] [address] 11/09/2024 4:00 PM EDT Office Visit [facility] MED & PED[facility] [address] [place] [address] Christina Rhodes MD [address] [place] [address] documented as of this encounter Visit Diagnoses Diagnosis Diabetes mellitus without complication (CMS/HCC)- Primary Type II or unspecified type diabetes mellitus without mention of complication, not stated as uncontrolled documented in this encounter Care Teams Venue Coordinator Relationship Specialty Start Date End Date Christina Rhodes MD [address] [place] [address] PCP - General Internal Medicine 04/10/16 Becky Acosta PharmD [address] [place] [address] Pharmacist Internal Medicine 07/28/24 documented as of this encounter
--- OUTSIDE RECORDS SUMMARY | 2024-09-18 19:00 | XMS_ITS | Encounter Summary ---
Author Organization [employer] Address [address] [place] [address] Care Team Providers Care Corporate Aircraft Mechanic Name Role Phone Christina Rhodes MD Primary Care Provider [phone] Becky Acosta PharmD Unavailable [phone] Reason for Visit * Reason Comments Med Refill Encounter Details Date Type Department Care Team ([facility] st Contact Info) Description 03/16/2023 Refill [facility] PED[facility] [address] [place] [address] Christina Rhodes MD [address] [place] [address] Depressive disorder Social History Tobacco Use Types [...] Description 10/13/2024 3:00 PM EDT Medication Management [facility] PEDS [address] [place] [address] Becky Acosta, PharmD [address] [place] [address] 11/09/2024 4:00 PM EDT Office Visit [facility] [address] [place], [place] [phone] Christina Rhodes MD [address] [place] [address] documented as of this encounter Visit Diagnoses Diagnosis Depressive disorder Depressive disorder, not elsewhere classified documented in this encounter Care Teams Corporate Aircraft Mechanic Relationship Specialty Start Date End Date Christina Rhodes MD [address] [place] [address] PCP - General Internal Medicine 04/10/16 Becky Acosta, NikkiD [address] [place] [address] Pharmacist Internal Medicine 07/28/24 documented as of this encounter
== END 2024-09-18 19:01 | disposition home or self-care (01) ==
LOC: HO.ED 18:48
PROVIDERS: Emergency Provider Emergency Medicine Emergency Medical Services; PCP Internal Medicine
DX: S40.022A Contusion of left upper arm, initial encounter (principal); X58.XXXA Exposure to other specified factors, initial encounter; Y93.9 Activity, unspecified; Y92.9 Unspecified place or not applicable; Y99.8 Other external cause status
CPT/HCPCS: 73060; 99282; 99283

== ENCOUNTER → 2024-09-18 16:56 | Outpatient (BNV) | payer MEDICARE, SELFPAY | PROVIDERS: PCP Internal Medicine; Visit Provider Radiology Diagnostic Radiology | DX: M79.602 Pain in left arm (principal) | CPT/HCPCS: 73060 ==